=== PATIENT | male | born 1990 | race American Indian/Alaskan Native ===

== ENCOUNTER 2019-01-30 22:20 | Emergency (ER) | payer SELFPAY ==
--- NOTE | 2019-01-30 22:28 | Event Note ---
ED Screening Note ED Screening Note: pt presents for left hand pain and left forearm pain states he got his hand caught in a bun compressor never injured before PMHx HTN, CVA does not take his medicine no allergies to meds This initial assessment/diagnostic orders/clinical plan/treatment(s) is/are subject to change based on patients health status, clinical progression and re- assessment by fellow clinical providers in the ED. Further treatment and workup at subsequent clinical providers discretion. Patient/guardian urged not to elope from the ED as their condition may be serious if not clinically assessed and managed. Initial orders include: XR of the left hand and forearm
[2019-01-30] MEDS ORDERED: IBUPROFEN 800 MG TAB PO ONE (23:02)
--- NOTE | 2019-01-30 23:13 | XRay Report ---
LEFT FOREARM 2 VIEWS INDICATION / CLINICAL INFORMATION: Injury at work with left forearm pain. COMPARISON: None available. FINDINGS: BONES / JOINT(S): No acute fracture or subluxation. No significant arthritis. SOFT TISSUES: No significant abnormality. ADDITIONAL FINDINGS: None. IMPRESSION: No acute abnormality. Signer Name: Henok Lau MD Signed: 01/30/2019 11:09 PM Workstation Name: [id number]
--- NOTE | 2019-01-30 23:15 | XRay Report ---
LEFT HAND 3 VIEWS INDICATION / CLINICAL INFORMATION: Injury at work with left hand pain. COMPARISON: None available. FINDINGS: BONES / JOINT(S): No acute fracture or subluxation. There is a moderate sized well-defined cyst in th e distal navicular which is likely developmental. SOFT TISSUES: No significant abnormality. ADDITIONAL FINDINGS: None. IMPRESSION: No acute abnormality. Signer Name: Henok Lau MD Signed: 01/30/2019 11:10 PM Workstation Name: [id number]
[2019-01-30] MEDS ORDERED: traMADol 50 MG TAB PO ONE (23:20)
--- NOTE | 2019-01-30 23:40 | Emergency Department Report ---
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 Patient states that the roller Haile to the mid forearm. Patient states he was in such pain after leaving the restaurant he went home and had a few shots of alcohol. Patient states he can move his fingers but 70 extreme pain whenever he tries to move his wrist or supinate or pronate. Pain is a 10 out of 10. MD Complaint: extremity pain - Related Data Previous Rx's Medication Instructions Recorded Last Taken Type HYDROcodone/APAP 5-325 [[place] 1 each PO Q6HR PRN #10 tablet 01/30/19 Unknown Rx 5/325] Ibuprofen [Motrin 800 MG tab] 800 mg PO Q8HR PRN #10 tablet 01/30/19 Unknown Rx methOCARBAMOL [Robaxin TAB] 500 mg PO Q6H PRN #14 tablet 01/30/19 Unknown Rx Allergies Allergy/AdvReac Type Severity Reaction Status Date / Time No Known Allergies Allergy Verified 01/30/19 22:23 ED Review of Systems ROS: Stated complaint: LT HAND/ARM PAIN Other details as noted in HPI Comment: All other systems reviewed and negative ED Past Medical Hx - Past Medical History Hx Hypertension: Yes Hx CVA: Yes Additional medical history: elevated cholesterol - Social History Smoking Status: Current Every Day Smoker Substance Use Type: Alcohol, Marijuana - Medications Home Medications: Home Medications Medication Instructions Recorded Confirmed Last Taken Type HYDROcodone/APAP 5-325 [[place] 1 each PO Q6HR PRN #10 tablet 01/30/19 Unknown Rx 5/325] Ibuprofen [Motrin 800 MG tab] 800 mg PO Q8HR PRN #10 tablet 01/30/19 Unknown Rx methOCARBAMOL [Robaxin TAB] 500 mg PO Q6H PRN #14 tablet 01/30/19 Unknown Rx ED Physical Exam - General Limitations: No Limitations General appearance: alert, in distress - Head Head exam: Present: atraumatic, normocephalic - Eye Eye exam: Present: normal appearance - ENT ENT exam: Present: mucous membranes moist - Neck Neck exam: Present: normal inspection - GI/Abdominal GI/Abdominal exam: Absent: distended - Expanded Upper Extremity Exam Left Shoulder Exam: Present: normal inspection, full ROM Upper Arm exam: Present: normal inspection, full ROM Elbow exam: Present: normal inspection, full ROM Forearm Wrist exam: Present: tenderness (to the dorsal forearm), swelling Hand Wrist exam: Present: tenderness, swelling, other (patient is holding his hands and flexion. Patient has full range of motion to his fingers) Vascular: Present: normal capillary refill. Absent: vascular compromise ED Course Vital Signs 01/30/19 22:27 Temperature 98.7 F Pulse Rate 97 H Respiratory 18 Rate Blood Pressure 154/110 O2 Sat by Pulse 100 Oximetry ED Medical Decision Making - Radiology Data X-rays of the left hand and left forearm show no bony abnormality - Medical Decision Making Patient likely with some injury to the musculature and ligaments of the left forearm. Patient can move his fingers and actually can flex to make a complete fist which makes complete extensor tendon injury less likely. Patient placed in a sugar tong splint be discharged home. Given follow-up with orthopedic surgery. Critical care attestation.: If time is entered above; I have spent that time in minutes in the direct care of this critically ill patient, excluding procedure time. ED Disposition Clinical Impression: Left forearm pain Disposition: DC-01 TO HOME OR SELFCARE Is pt being admited?: No Does the pt Need Aspirin: No Condition: Stable Instructions: Musculoskeletal Pain (ED) Referrals: AKSHAT VILLAFANA MD [Staff Physician] - 3-5 Days Time of Disposition: 23:41
[2019-01-31 03:02] VITALS: BP 151/100
== END 2019-01-31 00:05 | disposition home or self-care (01) ==
LOC: ED 22:20
DX: M79.632 Pain in left forearm (principal); I10 Essential (primary) hypertension; F17.200 Nicotine dependence, unspecified, uncomplicated; F12.10 Cannabis abuse, uncomplicated; Z86.73 Personal history of transient ischemic attack (TIA), and cerebral infarction without residual deficits

== ENCOUNTER 2019-02-20 17:48 | Emergency (ER) | payer SELFPAY ==
[2019-02-20 18:30] VITALS: BP 146/93
[2019-02-20 19:10] LABS: Eosinophils % (Auto) 0.3 % (0.0-4.3); Hematocrit 45.7 % (35.5-45.6); Hemoglobin 15.6 gm/dl (11.8-15.2); Lymphocytes # (Auto) 2.6 K/mm3 (1.2-5.4); Lymphocytes % (Auto) 35.9 % (13.4-35.0); Mean Corpuscular HGB Conc 34 % (32-34); Mean Corpuscular Volume 100 fl (84-94); Monocytes # (Auto) 0.8 K/mm3 (0.0-0.8); Monocytes % (Auto) 11.4 % (0.0-7.3); Platelet Count 144 K/mm3 (140-440); Red Blood Count 4.59 M/mm3 (3.65-5.03); Red Cell Distribution Width 13.6 % (13.2-15.2)
[2019-02-20 19:19] LABS: BUN/Creatinine Ratio 11; Blood Urea Nitrogen 8 mg/dL (9-20); Calcium 9.3 mg/dL (8.4-10.2); Hemolysis Index 13
--- NOTE | 2019-02-20 19:50 | XRay Report ---
CHEST 1 VIEW 02/20/2019 6:38 PM INDICATION / CLINICAL INFORMATION: Shortness of breath. COMPARISON: None available. FINDINGS: SUPPORT DEVICES: None. HEART / MEDIASTINUM: No significant abnormality. LUNGS / PLEURA: No significant pulmonary or pleural abnormality. No pneumothorax. ADDITIONAL FINDINGS: No significant additional findings. IMPRESSION: 1. No acute findings. Signer Name: Steven Moeller MD Signed: 02/20/2019 7:46 PM Workstation Name: [id number]
--- NOTE | 2019-02-20 20:38 | Emergency Department Report ---
ED Chest Pain HPI - General Chief Complaint: Chest Pain Stated Complaint: KODY Time Seen by Provider: 02/20/19 18:10 Source: EMS Mode of arrival: Stretcher Limitations: No Limitations - History of Present Illness Initial Comments: 28-year-old male, history of asthma, presents to ED via EMS for chest pain or shortness of breath. Patient reports anterior chest pain, worse with palpation. Reports wheezing as well. Reports onset of symptoms while walking home from the grocery store. EMS was called, albuterol nebs were given, patient transported to ED. Patient states his symptoms have improved. MD Complaint: chest pain -: This evening Onset: during exertion Pain Location: left chest, right chest Pain Radiation: none Severity: mild Quality: sharp Consistency: now resolved Improves With: medication-other Worsens With: exertion re: dyspnea. denies: nausea, vomting, diaphoresis Other Symptoms: denies: cough, fever, leg swelling - Related Data Previous Rx's Medication Instructions Recorded Last Taken Type HYDROcodone/APAP 5-325 [[place] 1 each PO Q6HR PRN #10 tablet 01/30/19 Unknown Rx 5/325] Ibuprofen [Motrin 800 MG tab] 800 mg PO Q8HR PRN #10 tablet 01/30/19 Unknown Rx methOCARBAMOL [Robaxin TAB] 500 mg PO Q6H PRN #14 tablet 01/30/19 Unknown Rx Allergies Allergy/AdvReac Type Severity Reaction Status Date / Time No Known Allergies Allergy Verified 01/30/19 22:23 Heart Score - HEART Score History: Slightly suspicious EKG: Normal Age: < 45 Risk factors: 1-2 risk factors Troponin: < normal limit HEART Score: 1 ED Review of Systems ROS: Stated complaint: KODY Other details as noted in HPI Comment: All other systems reviewed and negative Constitutional: denies: chills, fever Respiratory: shortness of breath, wheezing Cardiovascular: chest pain Musculoskeletal: other (denies leg pain or swelling) ED Past Medical Hx - Past Medical History Previous Medical History?: Yes Hx Hypertension: Yes Hx CVA: Yes Additional medical history: elevated cholesterol - Surgical History Past Surgical History?: No - Social History Smoking Status: Unknown if ever smoked Substance Use Type: None - Medications Home Medications: Home Medications Medication Instructions Recorded Confirmed Last Taken Type HYDROcodone/APAP 5-325 [[place] 1 each PO Q6HR PRN #10 tablet 01/30/19 Unknown Rx 5/325] Ibuprofen [Motrin 800 MG tab] 800 mg PO Q8HR PRN #10 tablet 01/30/19 Unknown Rx methOCARBAMOL [Robaxin TAB] 500 mg PO Q6H PRN #14 tablet 01/30/19 Unknown Rx ED Physical Exam - General Limitations: No Limitations General appearance: alert, in no apparent distress - Head Head exam: Present: atraumatic, normocephalic - Eye Eye exam: Present: normal appearance, EOMI - ENT ENT exam: Present: mucous membranes moist - Neck Neck exam: Present: normal inspection - Respiratory Respiratory exam: Present: normal lung sounds bilaterally. Absent: respiratory distress, wheezes - Cardiovascular Cardiovascular Exam: Present: regular rate, normal rhythm - GI/Abdominal GI/Abdominal exam: Present: soft. Absent: distended, tenderness - Extremities Exam Extremities exam: Present: normal inspection. Absent: pedal edema, calf tenderness - Neurological Exam Neurological exam: Present: alert, oriented X3, CN II-XII intact. Absent: motor sensory deficit - Psychiatric Psychiatric exam: Present: normal affect, normal mood - Skin Skin exam: Present: warm, dry, intact, normal color ED Course Vital Signs 02/20/19 02/20/19 17:53 18:28 Temperature 97.8 F Pulse Rate 93 H Respiratory 16 Rate Blood Pressure 146/93 [Left] O2 Sat by Pulse 100 Oximetry ED Medical Decision Making - Lab Data Result diagrams: 02/20/19 18:48 02/20/19 18:48 - EKG Data -: EKG Interpreted by Nc EKG shows normal: sinus rhythm, axis, intervals, QRS complexes, ST-T waves Rate: normal - EKG Data Interpretation: no acute changes - Radiology Data Radiology results: report reviewed, image reviewed - Medical Decision Making Patient eloped. - Differential Diagnosis asthma, ACS, pneumothorax Critical care attestation.: If time is entered above; I have spent that time in minutes in the direct care of this critically ill patient, excluding procedure time. ED Disposition Clinical Impression: Chest pain Disposition: ELOPED Is pt being admited?: No Condition: Stable Instructions: Chest Pain (ED) Referrals: PRIMARY CARE,MD [Primary Care Provider] - 3-5 Days
== END 2019-02-20 20:18 | disposition left against medical advice (07) ==
LOC: ED 17:48
DX: R07.89 Other chest pain (principal); I10 Essential (primary) hypertension; E78.5 Hyperlipidemia, unspecified; Z86.73 Personal history of transient ischemic attack (TIA), and cerebral infarction without residual deficits; Z79.899 Other long term (current) drug therapy
CPT/HCPCS: 36415; 71045; 80048; 84484; 85025; 93005; 93010

== ENCOUNTER 2020-09-16 23:57 | Emergency (ER) | payer SELFPAY ==
[2020-09-17 00:41] VITALS: BP 175/120
--- NOTE | 2020-09-17 02:37 | XRay Report ---
EXAMINATION: Left shoulder radiograph, 2 views, 09/17/2020 CLINICAL INFORMATION: Trauma. Seizure. COMPARISON: None. FINDINGS: There is no evidence of acute fracture or dislocation of the left shoulder. No significant bony degenerative changes are noted Signer Name: Graciela Wang MD Signed: 09/17/2020 2:33 AM Workstation Name: [id number]
--- NOTE | 2020-09-17 05:15 | Cat Scan Report ---
Examination: CT of the head without contrast Clinical information: Seizure Comparison: None Technical: Multiple axial CT images of the head were obtained without intravenous contrast. Sagittal and coronal reformats were obtained. All CTs at this facility utilize dose reduction techniques inc luding automated exposure control, iterative reconstruction and weight based dosing when appropriate to reduce patient radiation dose to as low as reasonable achievable. Findings: INTRACRANIAL CONTENTS: There is no CT evidence of acute intracranial hemorrhage or large territorial infarct. The ventricular system is normal in size. There is no evidence of mass effect or midline cliff ft. SKULL: No acute bony abnormality is visualized. ORBITS: The bilateral orbits and globes appear normal PARANASAL SINUSES / MASTOID AIR CELLS: Paranasal sinuses and mastoid air cells appear clear. Impression: 1. No CT evidence of acute intracranial process. Signer Name: Graciela Wang MD Signed: 09/17/2020 5:10 AM Workstation Name: [id number]
[2020-09-17 05:20] LABS: Basophils % (Auto) 0.3 % (0.0-1.8); Eosinophils # (Auto) 0.1 K/mm3 (0.0-0.4); Eosinophils % (Auto) 0.6 % (0.0-4.3); Hematocrit 39.2 % (35.5-45.6); Hemoglobin 13.7 gm/dl (11.8-15.2); Lymphocytes # (Auto) 2.6 K/mm3 (1.2-5.4); Lymphocytes % (Auto) 33.2 % (13.4-35.0); Mean Corpuscular HGB Conc 35 % (32-34); Mean Corpuscular Volume 105 fl (84-94); Monocytes # (Auto) 0.6 K/mm3 (0.0-0.8); Platelet Count 122 K/mm3 (140-440); Red Blood Count 3.74 M/mm3 (3.65-5.03); Red Cell Distribution Width 14.1 % (13.2-15.2)
[2020-09-17 05:33] LABS: Alanine Aminotransferase 52 units/L (7-56); Albumin 4.4 g/dL (3.9-5); Blood Urea Nitrogen 8 mg/dL (9-20); Calcium 8.7 mg/dL (8.4-10.2); Hemolysis Index 6
[2020-09-17 05:37] LABS: Amphetamine Screen,Urine Negative; Benzodiazepines Screen,Urine Negative; Cocaine Screen,Urine Negative; Methadone Screen,Urine Negative; Opiate Screen,Urine Negative
[2020-09-17 05:37] LABS: BUN/Creatinine Ratio 13
[2020-09-17 05:56] LABS: Cannabinoid Screen,Urine Positive
[2020-09-17] MEDS ORDERED: IBUPROFEN 600 MG TAB PO ONE (06:50)
[2020-09-17] MEDS ORDERED: HYDROcodone/ACETAMINOPHEN 5-325 MG TAB PO ONE (06:50)
--- NOTE | 2020-09-17 06:54 | Emergency Department Report ---
ED General Adult HPI - General Chief complaint: Shoulder Injury Stated complaint: SEIZURES Time Seen by Provider: 09/17/20 04:37 Source: patient, EMS Mode of arrival: Stretcher Limitations: No Limitations - History of Present Illness Initial comments: 30-year-old -[place] male [facility] emerge department complaining of having a seizure and falling and injuring his left shoulder about 36 hours ago. States that shoulder popped out of place and spontaneously had reduced but pain still lingered. He reports dull throbbing pain to the to the shoulder which is improving as time progresses. He does have a continue to have dull throbbing headaches and various seizure activity over the last 1 month which he states that the seizures occur at random and are short-lived and he is more like passing out than seizure activity. Alcohol seems to worsen the symptoms. States he has been seen at another hospital for his shoulder and passing out but reports no CT scan was obtained. He is not yet follow-up with a primary care provider and symptoms continue to progress. Reports no visual changes, no fevers chills or sweats. No nausea vomiting Radiation: non-radiation Quality: aching, dull Consistency: constant Improves with: none Worsens with: none Associated Symptoms: headaches, nausea/vomiting. denies: confusion, chest pain, cough, diaphoresis, seizure, syncope, weakness - Related Data Previous Rx's Medication Instructions Recorded Last Taken Type HYDROcodone/APAP 5-325 [[place] 1 each PO Q6HR PRN #10 tablet 01/30/19 Unknown Rx 5/325] Ibuprofen [Motrin 800 MG tab] 800 mg PO Q8HR PRN #10 tablet 01/30/19 Unknown Rx methOCARBAMOL [Robaxin TAB] 500 mg PO Q6H PRN #14 tablet 01/30/19 Unknown Rx levETIRAcetam [Keppra TAB] 500 mg PO BID #60 tablet 09/17/20 Unknown Rx Allergies Allergy/AdvReac Type Severity Reaction Status Date / Time No Known Allergies Allergy Verified 01/30/19 22:23 ED Review of Systems ROS: Stated complaint: SEIZURES Other details as noted in HPI Comment: All other systems reviewed and negative ED Past Medical Hx - Past Medical History Hx Hypertension: Yes Hx CVA: Yes Additional medical history: elevated cholesterol - Social History Smoking Status: Current Every Day Smoker - Medications Home Medications: Home Medications Medication Instructions Recorded Confirmed Last Taken Type HYDROcodone/APAP 5-325 [[place] 1 each PO Q6HR PRN #10 tablet 01/30/19 Unknown Rx 5/325] Ibuprofen [Motrin 800 MG tab] 800 mg PO Q8HR PRN #10 tablet 01/30/19 Unknown Rx methOCARBAMOL [Robaxin TAB] 500 mg PO Q6H PRN #14 tablet 01/30/19 Unknown Rx levETIRAcetam [Keppra TAB] 500 mg PO BID #60 tablet 09/17/20 Unknown Rx ED Physical Exam - General Limitations: No Limitations General appearance: alert, in no apparent distress, other (Faint smell of EtOH on breath) - Head Head exam: Present: atraumatic, normocephalic - Eye Eye exam: Present: normal appearance, PERRL, EOMI. Absent: nystagmus - ENT ENT exam: Present: normal exam, normal orophraynx, mucous membranes moist, TM's normal bilaterally, normal external ear exam - Neck Neck exam: Present: normal inspection, full ROM - Respiratory Respiratory exam: Present: normal lung sounds bilaterally. Absent: respiratory distress, wheezes, rales, rhonchi, chest wall tenderness, accessory muscle use, decreased breath sounds - Cardiovascular Cardiovascular Exam: Present: regular rate, normal rhythm. Absent: systolic m urmur, diastolic murmur, rubs, gallop - GI/Abdominal GI/Abdominal exam: Present: soft, normal bowel sounds. Absent: tenderness, guarding, rebound - Rectal Rectal exam: Present: deferred - Extremities Exam Extremities exam: Present: normal inspection, tenderness (Left shoulder full range of motion noted. Some tenderness with Virgen test. No sulcus sign. No obvious deformities), normal capillary refill. Absent: calf tenderness - Back Exam Back exam: Present: normal inspection. Absent: CVA tenderness (R), CVA tenderness (L) - Neurological Exam Neurological exam: Present: alert, oriented X3, CN II-XII intact, normal gait - Expanded Neurological Exam Expanded Patient oriented to: Present: person, place, time Speech: Present: fluid speech, expressive aphasia, anomia Cranial nerves: EOM's Intact: Normal, Gag Reflex: Normal Cerebellar function: Finger to Nose: Normal, Heel to Blakely: Normal, Romberg: Normal Best Eye Response (Paula): (4) open spontaneously Best Motor Response (Paula): (6) obeys commands Best Verbal Response (Paula): (5) oriented Paula Total: 15 - Psychiatric Psychiatric exam: Present: normal affect, normal mood - Skin Skin exam: Present: warm, dry, intact, normal color. Absent: rash ED Course Vital Signs 09/17/20 00:40 Temperature 97.9 F Pulse Rate 107 H Respiratory 18 Rate Blood Pressure 175/120 O2 Sat by Pulse 98 Oximetry ED Medical Decision Making - Lab Data Result diagrams: 09/17/20 04:48 09/17/20 04:48 - Radiology Data Radiology results: report reviewed [facility] [address] [place] [address] Cat Scan Report Signed Patient: RAMESH HWANG MR#: [id number] 12 : 1990 Acct:[id number] Age/Sex: 30 / M ADM Date: 09/16/20 Loc: ED Attending Dr: Ordering Physician: LAST MARRERO Date of Service: 09/17/20 Procedure(s): CT head/brain wo con Accession Number(s): [id number] cc: LAST MARRERO Examination: CT of the head without contrast Clinical information: Seizure Comparison: None Technical: Multiple axial CT images of the head were obtained without intravenous contrast. Sagittal and coronal reformats were obtained. All CTs at this facility utilize dose reduction techniques including automated exposure control, iterative reconstruction and weight based dosing when appropriate to reduce patient radiation dose to as low as reasonable achievable. Findings: INTRACRANIAL CONTENTS: There is no CT evidence of acute intracranial hemorrhage or large territorial infarct. The ventricular system is normal in size. There is no evidence of mass effect or midline shift. SKULL: No acute bony abnormality is visualized. ORBITS: The bilateral orbits and globes appear normal PARANASAL SINUSES / MASTOID AIR CELLS: Paranasal sinuses and mastoid air cells appear clear. Impression: 1. No CT evidence of acute intracranial process. Signer Name: Graciela Wang MD Signed: 09/17/2020 5:10 AM Workstation Name: [id number] Transcribed By: SANJU Dictated By: Graciela Wang MD Electronically Authenticated By: Graciela Wang MD Signed Date/Time: 09/17/20 0510 DD/ [id number] TD/TT: Print Cancel - Medical Decision Making 30-year-old male presents emerged department with symptoms consistent with acute seizure which may have been due to his alcohol consumption. He does report recurrent/recent seizure episodes. Patient had a normal return to her baseline normal mental state normal physical function per my examination. Normal to compromised vision history and had no preceding fever. Does have a history of alcohol abuse but no suspicion for any other toxic ingestion. I considered but think less likely secondary etiologies of epileptic seizures to include drug/toxin etiologies, metabolic disturbances, acute [employer] infections, intracranial hemorrhage/tumor/CVA. Presentation not consistent with nonepileptic's type seizure to include syncope, neurologic etiologies, impact seizure related to trauma. unlikely stroke. My seizure MDM Critical care attestation.: If time is entered above; I have spent that time in minutes in the direct care of this critically ill patient, excluding procedure time. ED Disposition Clinical Impression: Seizures, Shoulder pain Disposition: DC-01 TO HOME OR SELFCARE Is pt being admited?: No Does the pt Need Aspirin: No Condition: Stable Instructions: Shoulder Pain, Seizure, Adult, How to Use Cold Therapy Prescriptions: levETIRAcetam [Keppra TAB] 500 mg PO BID #60 tablet Referrals: [facility] [Provider Group] - 3-5 Days MEDINA WHITEHEAD MD [Staff Physician] - 3-5 Days
== END 2020-09-17 06:56 | disposition home or self-care (01) ==
LOC: ED 23:57
DX: R56.9 Unspecified convulsions (principal); M25.512 Pain in left shoulder; I10 Essential (primary) hypertension; F17.200 Nicotine dependence, unspecified, uncomplicated; E78.00 Pure hypercholesterolemia, unspecified; Z86.73 Personal history of transient ischemic attack (TIA), and cerebral infarction without residual deficits; Z79.899 Other long term (current) drug therapy; W18.39XA Other fall on same level, initial encounter; Y93.89 Activity, other specified; Y92.89 Other specified places as the place of occurrence of the external cause; Y99.8 Other external cause status
CPT/HCPCS: 36415; 70450; 80053; 80307; 85025; 99285

== ENCOUNTER 2021-02-13 21:26 | Emergency (ER) | payer SELFPAY ==
[2021-02-13] MEDS ORDERED: ONDANSETRON 4 MG/2 ML INJ IV ONE (21:57)
[2021-02-13] MEDS ORDERED: fentaNYL 100 MCG/2 ML INJ IV ONE (21:57)
[2021-02-13] MEDS ORDERED: SODIUM CHLORIDE 0.9% 1000 ML 1,000 ML IV ONE (21:57)
--- NOTE | 2021-02-13 22:02 | Emergency Department Report ---
ED Upper Extremity Inj HPI - General Chief Complaint: Shoulder Injury Stated Complaint: RIGHT SHOULDER DISLOCATED Time Seen by Provider: 02/13/21 21:53 Source: patient, EMS Mode of arrival: Stretcher Limitations: No Limitations - History of Present Illness Initial Comments: Patient is 30 years old male with history of recurrent shoulder dislocation. Temo reina presented to the ER complaining of right shoulder dislocation. Patient stated that he was banging on his door this afternoon when this happened. Patient denied any other injuries. MD Complaint: Injury to:: right, shoulder -: Sudden, This afternoon Other Extremity Injury: Shoulder: Right Other Injuries: none Improves With: immobilization Worsens With: movement of extremity - Related Data Previous Rx's Medication Instructions Recorded Last Taken Type HYDROcodone/APAP 5-325 [[place] 1 each PO Q6HR PRN #10 tablet 01/30/19 Unknown Rx 5/325] Ibuprofen [Motrin 800 MG tab] 800 mg PO Q8HR PRN #10 tablet 01/30/19 Unknown Rx methOCARBAMOL [Robaxin TAB] 500 mg PO Q6H PRN #14 tablet 01/30/19 Unknown Rx levETIRAcetam [Keppra TAB] 500 mg PO BID #60 tablet 09/17/20 Unknown Rx Naproxen [Naprosyn] 500 mg PO BID #14 tablet 02/14/21 Unknown Rx Allergies Allergy/AdvReac Type Severity Reaction Status Date / Time No Known Allergies Allergy Verified 01/30/19 22:23 ED Review of Systems ROS: Stated complaint: RIGHT SHOULDER DISLOCATED Other details as noted in HPI Comment: All other systems reviewed and negative Constitutional: denies: chills Respiratory: denies: cough, shortness of breath, SOB with exertion Gastrointestinal: denies: abdominal pain Musculoskeletal: arthralgia ED Past Medical Hx - Past Medical History Hx Hypertension: Yes Hx CVA: Yes Additional medical history: elevated cholesterol - Social History Smoking Status: Current Every Day Smoker Substance Use Type: Alcohol - Medications Home Medications: Home Medications Medication Instructions Recorded Confirmed Last Taken Type HYDROcodone/APAP 5-325 [[place] 1 each PO Q6HR PRN #10 tablet 01/30/19 Unknown Rx 5/325] Ibuprofen [Motrin 800 MG tab] 800 mg PO Q8HR PRN #10 tablet 01/30/19 Unknown Rx methOCARBAMOL [Robaxin TAB] 500 mg PO Q6H PRN #14 tablet 01/30/19 Unknown Rx levETIRAcetam [Keppra TAB] 500 mg PO BID #60 tablet 09/17/20 Unknown Rx Naproxen [Naprosyn] 500 mg PO BID #14 tablet 02/14/21 Unknown Rx ED Physical Exam - General Limitations: No Limitations General appearance: alert, in no apparent distress - Head Head exam: Present: atraumatic, normocephalic, normal inspection - Eye Eye exam: Present: normal appearance - ENT ENT exam: Present: normal exam, normal orophraynx, mucous membranes moist - Neck Neck exam: Present: normal inspection, full ROM. Absent: tenderness, meningismus - Respiratory Respiratory exam: Present: normal lung sounds bilaterally - Cardiovascular Cardiovascular Exam: Present: regular rate, normal rhythm, normal heart sounds - GI/Abdominal GI/Abdominal exam: Present: soft. Absent: distended, tenderness, guarding, rebound - Expanded Upper Extremity Exam Right Shoulder Exam: Present: tenderness, dislocation. Absent: swelling, abrasion, laceration, ecchymosis Upper Arm exam: Present: normal inspection, full ROM. Absent: tenderness, swelling Elbow exam: Present: normal inspection, full ROM. Absent: tenderness, swelling Forearm Wrist exam: Present: normal inspection, full ROM. Absent: tenderness, swelling, abrasion Neuro motor exam: Present: wrist extension intact, thumb opposition intact, thumb IP flexion intact, thumb adduction intact, fingers 2-5 abduction intact Neurosensory exam: Present: 2-point discrimination, radial nerve intact, ulnar nerve intact, median nerve intact Vascular: Present: normal capillary refill - Back Exam Back exam: Present: normal inspection, full ROM. Absent: CVA tenderness (R), CVA tenderness (L) - Neurological Exam Neurological exam: Present: alert, oriented X3, CN II-XII intact, normal gait, reflexes normal - Psychiatric Psychiatric exam: Present: normal mood - Skin Skin exam: Present: warm, intact, normal color ED Course Vital Signs 02/13/21 02/13/21 21:32 21:59 Pulse Rate 62 Blood Pressure 143/99 O2 Sat by Pulse 98 94 Oximetry - Reevaluation(s) Reevaluation #1: 02/14/21 01:09 Patient now is alert, oriented x3 no acute distress. Patient will be discharged home in stable condition. - Moderate Sedation Indications: fracture/dislocation redu Mallampati Airway Score: 2 Preparation: italian teacher applied, pulse oximeter, capnometry used, supplemental O2 applied, reversal agents at bedside, suction/airway equipment at bedside, IV secured Fentanyl: IV IV Etomidate Dose (mgs): 8.8 Complications: none Patient Tolerated Procedure: well, no complications - Orthopedic Joint Reduction Joint #1 Consent Obtained: written consent Time Out Performed: Yes Side: right Joint Reduction Location: shoulder Analgesia: moderate sedation Shoulder Technique Used (if applicable): traction/counter-traction Technique Used: traction/counter-traction Post-Reduction Neuro Exam: intact Post-Reduction Vascular Exam: intact Post Reduction X-Ray Obtained: Yes Post Reduction X-Ray Results: reduced Splint Applied: Yes Patient Tolerated Procedure: well, no complications ED Medical Decision Making - Radiology Data Radiology results: report reviewed - Medical Decision Making Patient is 30 years old male with history of recurrent shoulder dislocation. Patient presented to the ER complaining of right shoulder dislocation. Patient stated that he was banging on his door this afternoon when this happened. Patient denied any other injuries. Right shoulder x-ray showed dislocation. Using a moderate sedation. Shoulder dislocation reduced using traction and countertraction. No complication. Post x-ray showed satisfactory reduction. Arm immobilized. Patient advised to follow-up with his primary doctor in the next 2 to 3 days and to return to the ER if he develop any new symptoms. Critical care attestation.: If time is entered above; I have spent that time in minutes in the direct care of this critically ill patient, excluding procedure time. ED Disposition Clinical Impression: Recurrent dislocation, right shoulder Disposition: 01 HOME / SELF CARE / HOMELESS Is pt being admited?: No Condition: Stable Instructions: Recurrent Shoulder Laxity and Instability, Moderate Conscious Sedation, Adult Prescriptions: Naproxen [Naprosyn] 500 mg PO BID #14 tablet Referrals: AKSHAT VILLAFANA MD [Staff Physician] - 3-5 Days
[2021-02-13] MEDS ORDERED: ETOMIDATE 20 MG/10 ML INJ IV ONE (23:04)
--- NOTE | 2021-02-13 23:08 | XRay Report ---
RIGHT SHOULDER 1 VIEW(S) INDICATION / CLINICAL INFORMATION: shoulder injury. Right shoulder dislocation 3:00 PM COMPARISON: None available. FINDINGS: BONES / JOINT(S): Anterior dislocation of the humeral head relative to the glenoid. No definite fract ure. No significant arthritis. SOFT TISSUES: No significant abnormality. ADDITIONAL FINDINGS: None. IMPRESSION: 1. Anterior shoulder dislocation. Signer Name: Keila Lomax MD Signed: 02/13/2021 11:03 PM Workstation Name: [id number]
[2021-02-13] MEDS ORDERED: fentaNYL 250 MCG/5 ML INJ IV ONE (23:31)
--- NOTE | 2021-02-14 00:38 | XRay Report ---
RIGHT SHOULDER 1 VIEW(S) 02/13/21 11:48 PM INDICATION / CLINICAL INFORMATION: Post reduction. COMPARISON: 02/13/21 10:11 PM FINDINGS: BONES / JOINT(S): Successful interval reduction of previous anterior shoulder dislocation. No definit e fracture. No significant arthritis. SOFT TISSUES: No significant abnormality. ADDITIONAL FINDINGS: None. Signer Name: Keila Lomax MD Signed: 02/14/2021 12:34 AM Workstation Name: [id number]
[2021-02-14 01:17] VITALS: BP 166/117
[2021-02-14] MEDS ORDERED: fentaNYL 100 MCG/2 ML INJ ONE (05:41)
== END 2021-02-14 01:30 | disposition home or self-care (01) ==
LOC: ED 21:26
DX: S43.004A Unspecified dislocation of right shoulder joint, initial encounter (principal); X58.XXXA Exposure to other specified factors, initial encounter; Y93.89 Activity, other specified; Y92.89 Other specified places as the place of occurrence of the external cause; Y99.8 Other external cause status
CPT/HCPCS: 23650; 73020; 96361; 96374; 96375; 96376; 99284; J2405; J3010; J7030

== ENCOUNTER 2021-06-13 15:46 | Inpatient (IN) | payer SELFPAY ==
[2021-06-13] MEDS ORDERED: CLINDAMYCIN 600 MG/50 mL 600 MG/50 ML BAG IV ONE (17:22)
[2021-06-13] MEDS ORDERED: KETOROLAC 30 MG/1 ML INJ IV ONE (17:23)
[2021-06-13] MEDS ORDERED: ONDANSETRON 4 MG/2 ML INJ IV ONE (17:23)
--- NOTE | 2021-06-13 17:32 | Emergency Department Report ---
ED Lower Extremity HPI - General Chief Complaint: Extremity Injury, Lower Stated Complaint: RIGHT TOES APARICIO BITE Time Seen by Provider: 06/13/21 16:45 Source: patient, EMS Mode of arrival: Stretcher Limitations: Physical Limitation - History of Present Illness Initial Comments: 30-year-old homeless male smoker with a past medical history of hypertension and seizures noncompliant with medication presents to the hospital complaining of worsening pain to right foot. 3 months ago patient was diagnosed with frostbite at [facility]. He has been seen at [facility] a total of 3 times and was told he also has gangrene. Patient has noted black discoloration to toes x1 month. During his visits to [facility] he was treated with ibuprofen, N [place], antibiotics, and tetanus. Patient states that his swelling improved after antibiotics but reoccurred 2 days ago. He has not followed up as an outpatient since his diagnosis. Pain is 10/10 intensity, worse with palpation and movement. States that pain is not controlled with [place] or ibuprofen - Related Data Previous Rx's Medication Instructions Recorded Last Taken Type levETIRAcetam [Keppra TAB] 500 mg PO BID #60 tablet 09/17/20 Unknown Rx Allergies Allergy/AdvReac Type Severity Reaction Status Date / Time No Known Allergies Allergy Verified 06/13/21 15:54 ED Review of Systems ROS: Stated complaint: RIGHT TOES APARICIO BITE Other details as noted in HPI Comment: All other systems reviewed and negative ED Past Medical Hx - Past Medical History Hx Hypertension: Yes Hx CVA: Yes Additional medical history: elevated cholesterol - Social History Smoking Status: Current Every Day Smoker Substance Use Type: Alcohol - Medications Home Medications: Home Medications Medication Instructions Recorded Confirmed Last Taken Type levETIRAcetam [Keppra TAB] 500 mg PO BID #60 tablet 09/17/20 Unknown Rx ED Physical Exam - General Limitations: Physical Limitation - Other Other exam information: General: No acute distress Head: Atraumatic Eyes: normal appearance ENT: Moist mucous membranes Neck: Normal appearance, no midline tenderness Chest: Clear to auscultation bilaterally CV: Regular rate and rhythm Abdomen: Soft, normal bowel sounds, nontender, nondistended, no rebound or guarding Back: Normal inspection Extremity: Black discoloration to distal right first, second, third toes with generalized foot swelling and warmth and tenderness to light palpation. 2+ DP pulse. Patient is able to move his toes. Neuro: Alert O x 3, no facial asymmetry, speech clear, no gross motor sensory deficit Psych: Appropriate behavior Skin: No rash ED Course Vital Signs 06/13/21 06/13/21 06/13/21 15:52 17:24 17:31 Temperature Pulse Rate 98 H 84 90 Respiratory 14 18 19 Rate Blood Pressure 185/121 Blood Pressure 184/123 [Right] O2 Sat by Pulse 95 97 Oximetry 06/13/21 06/13/21 06/13/21 17:45 17:46 18:18 Temperature 98.4 F Pulse Rate 84 87 Respiratory 12 15 25 H Rate Blood Pressure 175/135 Blood Pressure 175/135 [Right] O2 Sat by Pulse 97 96 Oximetry 06/13/21 18:20 Temperature 98.4 F Pulse Rate 89 Respiratory 21 Rate Blood Pressure 164/119 Blood Pressure [Right] O2 Sat by Pulse Oximetry - Consultations Consultation #1: 06/13/21 19:25 case d/w Dr Magaña surgeon, agrees to consult for possible surgical intervention and amputation. Patient states he is willing to receive an amputation if necessary for treatment and pain relief 06/13/21 21:36 Case d/w Dr perdomo for admission ED Lower Extremity MDM - Lab Data Result diagrams: 06/13/21 17:54 06/13/21 17:54 Lab Results 06/13/21 06/13/21 Range/Units 17:54 17:54 WBC 9.3 (4.5-11.0) K/mm3 RBC 4.33 (3.65-5.03) M/mm3 Hgb 14.8 (11.8-15.2) gm/dl Hct 42.6 (35.5-45.6) % MCV 98 H (84-94) fl MCH 34 H (28-32) pg MCHC 35 H (32-34) % RDW 14.7 (13.2-15.2) % Plt Count 248 (140-440) K/mm3 Lymph % (Auto) 36.0 H (13.4-35.0) % [place] % (Auto) 4.9 (0.0-7.3) % Eos % (Auto) 0.2 (0.0-4.3) % Baso % (Auto) 0.2 (0.0-1.8) % Lymph # (Auto) 3.4 (1.2-5.4) K/mm3 [place] # (Auto) 0.5 (0.0-0.8) K/mm3 Eos # (Auto) 0.0 (0.0-0.4) K/mm3 Baso # (Auto) 0.0 (0.0-0.1) K/mm3 Seg Neutrophils % 58.7 (40.0-70.0) % Seg Neutrophils # 5.5 (1.8-7.7) K/mm3 ESR 19 (0-20) mm/Hr Sodium 143 (137-145) mmol/L Potassium 3.9 (3.6-5.0) mmol/L Chloride 100.9 (98-107) mmol/L Carbon Dioxide 26 (22-30) mmol/L Anion Gap 20 mmol/L BUN 12 (9-20) mg/dL Creatinine 0.6 L (0.8-1.3) mg/dL Estimated GFR > 60 ml/min BUN/Creatinine Ratio 20 % Glucose 90 (75-100) mg/dL Calcium 9.2 (8.4-10.2) mg/dL - Radiology Data Radiology results: report reviewed RIGHT FOOT 3 VIEWS INDICATION / CLINICAL INFORMATION: Gangrene of right toes, right foot swelling. COMPARISON: None available. FINDINGS: BONES and JOINT(S): No acute fracture or subluxation. No significant arthritis. No suspicious cortical destruction is identified. SOFT TISSUES: Mild edema is seen dorsally along the foot. No distinct wound is identified. No soft tissue gas is seen. ADDITIONAL FINDINGS: None. IMPRESSION: Mild right foot edema without other significant abnormalities. - Medical Decision Making 30-year-old male presents to the hospital with persistent severe right foot pain secondary to frostbite injury with gangrene. Patient also has fairly new swelling to the foot with warmth. Patient does not have fever, leukocytosis, elevated ESR, or x-ray findings of gas or osseous injury. Patient does have intractable and severe pain requiring multiple doses of narcotics. Patient has a palpable DP pulse to the right foot. Case discussed with Dr. Magaña who is agreed to evaluate patient for definitive treatment and possible amputation. Patient is agreeable to amputation necessary. Clindamycin provided given evidence of swelling and warmth to the foot. Patient is noted to have chronic untreated hypertension without signs of endorgan damage or symptoms (defer to hospitalist to treat). Keppra initiated for prophylaxis sz treatment. hospitalist to admit Critical Care Time: No Critical care attestation.: If time is entered above; I have spent that time in minutes in the direct care of this critically ill patient, excluding procedure time. ED Disposition Clinical Impression: Gangrene of right foot, Frostbite of right foot, Chronic hypertension, Noncompliance with medication regimen, Smoker, Epilepsy, Cellulitis of right foot, Intractable pain Disposition: ADMITTED INPATIENT Is pt being admited?: Yes Condition: Stable Instructions: Hypertension (ED) Time of Disposition: 19:32 (Dr Predomo to admit)
[2021-06-13] MEDS: HYDROmorphone 1 MG/1 ML INJ IV ONE ×2 (18:05→18:18)
--- NOTE | 2021-06-13 18:14 | XRay Report ---
RIGHT FOOT 3 VIEWS INDICATION / CLINICAL INFORMATION: Gangrene of right toes, right foot swelling. COMPARISON: None available. FINDINGS: BONES and JOINT(S): No acute fracture or subluxation. No significant arthritis. No suspicious cortica l destruction is identified. SOFT TISSUES: Mild edema is seen dorsally along the foot. No distinct wound is identified. No soft ti ssue gas is seen. ADDITIONAL FINDINGS: None. IMPRESSION: Mild right foot edema without other significant abnormalities. Signer Name: Dionicio Elliott MD Signed: 06/13/2021 6:10 PM Workstation Name: [id number]
[2021-06-13 18:21] LABS: Basophils % (Auto) 0.2 % (0.0-1.8); Eosinophils % (Auto) 0.2 % (0.0-4.3); Hematocrit 42.6 % (35.5-45.6); Hemoglobin 14.8 gm/dl (11.8-15.2); Lymphocytes # (Auto) 3.4 K/mm3 (1.2-5.4); Mean Corpuscular HGB Conc 35 % (32-34); Mean Corpuscular Volume 98 fl (84-94); Monocytes # (Auto) 0.5 K/mm3 (0.0-0.8); Monocytes % (Auto) 4.9 % (0.0-7.3); Platelet Count 248 K/mm3 (140-440); Red Blood Count 4.33 M/mm3 (3.65-5.03); Red Cell Distribution Width 14.7 % (13.2-15.2)
[2021-06-13 18:54] LABS: Blood Urea Nitrogen 12 mg/dL (9-20); Calcium 9.2 mg/dL (8.4-10.2); Hemolysis Index 18
[2021-06-13 18:57] LABS: BUN/Creatinine Ratio 20
[2021-06-13 19:12] LABS: Erythrocyte Sedimentation Rate 19 mm/Hr (0-20)
[2021-06-13] MEDS ORDERED: HYDROmorphone 1 MG/1 ML INJ IV ONE (19:27)
[2021-06-13] MEDS ORDERED: ONDANSETRON 4 MG/2 ML INJ IV PRN (21:56)
[2021-06-13] MEDS ORDERED: MORPHINE 2 MG/1 ML INJ IV PRN (21:56)
[2021-06-13] MEDS ORDERED: ACETAMINOPHEN 325 MG TAB PO PRN (21:56)
[2021-06-13] MEDS ORDERED: ALBUTEROL 2.5 MG/3 ML NEBU IH PRN (21:56)
[2021-06-13] MEDS ORDERED: HYDROmorphone 1 MG/1 ML INJ IV PRN (21:56)
[2021-06-13] MEDS ORDERED: levETIRAcetam 500 MG TAB PO SCH (22:00)
[2021-06-13] MEDS ORDERED: FAMOTIDINE 20 MG/2 ML INJ IV SCH (22:00)
[2021-06-13] MEDS ORDERED: D5W/0.45% NACL 1,000 ML IV SCH (22:00)
[2021-06-13] MEDS ORDERED: HEPARIN 5,000 UNIT/1 ML VIAL SUB-Q SCH (22:00)
[2021-06-13] MEDS ORDERED: VANCOMYCIN/NS 1 GM/250 ML 1 GM/250 ML BAG IV SCH (22:00)
--- NOTE | 2021-06-13 22:03 | History and Physical Report ---
History of Present Illness Date of examination: 06/13/21 Date of admission: 06/13/21 Chief complaint: Gangrene of the right foot Frostbite History of present illness: 30-year-old homeless male with history of hypertension and seizures and smoker was brought to the hospital complaining of worsening pain to right foot. 3 months ago patient was diagnosed with frostbite at [facility]. He has been seen at [facility] a total of 3 times and was told he also has gangrene. Patient has noted black discoloration to toes x1 month. During his visits to [facility] he was treated with ibuprofen, [place], antibiotics, and tetanus. Patient states that his swelling improved after antibiotics but reoccurred 2 days ago. He has not followed up as an outpatient since his diagnosis. Pain is 10/10 intensity, worse with palpation and movement. States that pain is not controlled with [place] or ibuprofen In the emergency room patient is found to have gangrene of the right foot. case d/w Dr Magaña surgeon, agrees to consult for possible surgical intervention and amputation. Patient states he is willing to receive an amputation if necessary for treatment and pain relief Past History Past Medical History: hypertension, hyperlipidemia, seizures (Tobacco abuse), stroke, other Social history: smoking, alcohol abuse Family history: no significant family history Medications and Allergies Allergies Allergy/AdvReac Type Severity Reaction Status Date / Time No Known Allergies Allergy Verified 06/13/21 15:54 Home Medications Medication Instructions Recorded Confirmed Last Taken Type levETIRAcetam [Keppra TAB] 500 mg PO BID #60 tablet 09/17/20 Unknown Rx Active Meds: Active Medications Levetiracetam (Levetiracetam 500 Mg Tab) 500 mg PO BID SUNG Review of Systems Musculoskeletal: other (Gangrene of the right foot. Frostbite) Exam - Constitutional Vitals: Temp Pulse Resp BP Pulse Ox 98.4 F 89 21 164/119 96 06/13/21 18:20 06/13/21 18:20 06/13/21 18:20 06/13/21 18:20 06/13/21 17:46 General appearance: Present: no acute distress, well-nourished - EENT Eyes: Present: PERRL ENT: hearing intact, clear oral mucosa - Neck Neck: Present: supple, normal ROM - Respiratory Respiratory effort: normal Respiratory: bilateral: CTA - Cardiovascular Heart Sounds: Present: S1 & S2. Absent: rub, click - Extremities Extremities: pulses symmetrical Extremity abnormal: cyanosis, erythema, black (Gangrene of the right foot), other Peripheral Pulses: within normal limits - Abdominal General gastrointestinal: Present: soft, non-tender, non-distended, normal bowel sounds Male genitourinary: Present: normal - Integumentary Integumentary: Present: clear, warm, dry - Musculoskeletal Musculoskeletal: gait normal, strength equal bilaterally - Psychiatric Psychiatric: appropriate mood/affect, intact judgment & insight - Neurologic Neurologic: CNII-XII intact, moves all extremities Results - Labs CBC & Chem 7: 06/13/21 17:54 06/13/21 17:54 Labs: Laboratory Last Values WBC 9.3 K/mm3 (4.5-11.0) 06/13/21 17:54 RBC 4.33 M/mm3 (3.65-5.03) 06/13/21 17:54 Hgb 14.8 gm/dl (11.8-15.2) 06/13/21 17:54 Hct 42.6 % (35.5-45.6) 06/13/21 17:54 MCV 98 fl (84-94) H 06/13/21 17:54 MCH 34 pg (28-32) H 06/13/21 17:54 MCHC 35 % (32-34) H 06/13/21 17:54 RDW 14.7 % (13.2-15.2) 06/13/21 17:54 Plt Count 248 K/mm3 (140-440) 06/13/21 17:54 Lymph % (Auto) 36.0 % (13.4-35.0) H 06/13/21 17:54 [place] % (Auto) 4.9 % (0.0-7.3) 06/13/21 17:54 Eos % (Auto) 0.2 % (0.0-4.3) 06/13/21 17:54 Baso % (Auto) 0.2 % (0.0-1.8) 06/13/21 17:54 Lymph # (Auto) 3.4 K/mm3 (1.2-5.4) 06/13/21 17:54 [place] # (Auto) 0.5 K/mm3 (0.0-0.8) 06/13/21 17:54 Eos # (Auto) 0.0 K/mm3 (0.0-0.4) 06/13/21 17:54 Baso # (Auto) 0.0 K/mm3 (0.0-0.1) 06/13/21 17:54 Seg Neutrophils % 58.7 % (40.0-70.0) 06/13/21 17:54 Seg Neutrophils # 5.5 K/mm3 (1.8-7.7) 06/13/21 17:54 ESR 19 mm/Hr (0-20) 06/13/21 17:54 Sodium 143 mmol/L (137-145) 06/13/21 17:54 Potassium 3.9 mmol/L (3.6-5.0) 06/13/21 17:54 Chloride 100.9 mmol/L (98-107) 06/13/21 17:54 Carbon Dioxide 26 mmol/L (22-30) 06/13/21 17:54 Anion Gap 20 mmol/L 06/13/21 17:54 BUN 12 mg/dL (9-20) 06/13/21 17:54 Creatinine 0.6 mg/dL (0.8-1.3) L 06/13/21 17:54 Estimated GFR > 60 ml/min 06/13/21 17:54 BUN/Creatinine Ratio 20 % 06/13/21 17:54 Glucose 90 mg/dL (75-100) 06/13/21 17:54 Calcium 9.2 mg/dL (8.4-10.2) 06/13/21 17:54 Assessment and Plan VTE prophylaxis?: Chemical Plan of care discussed with patient/family: Yes - Patient Problems (1) Gangrene of right foot Current Visit: Yes Status: Acute Plan to address problem: Admit the patient to the medical floor. NPO. D5 half-normal saline at the rate of 100 cc/h. Vancomycin 1 g IV every 12 hours. Zosyn 4.5 g IV every 8 hours. Morphine 2 mg IV every 4 hours as needed. We consulted vascular surgery for evaluation and possible amputation (2) Cellulitis of right foot Current Visit: Yes Status: Acute Plan to address problem: Vancomycin 1 g IV every 12 hours. Zosyn 4.5 g IV every 8 hours. Morphine 2 mg IV every 4 hours as needed. We consulted vascular surgery for evaluation and possible amputation (3) Chronic hypertension Current Visit: Yes Status: Acute Plan to address problem: Hydralazine 10 mg IV every 6 hours as needed. We continue the home medication (4) Epilepsy Current Visit: Yes Status: Acute Plan to address problem: Stable. We will continue the home medication Keppra 500 mg p.o. twice daily (5) Frostbite of right foot Current Visit: Yes Status: Acute Plan to address problem: NPO. D5 half-normal saline at the rate of 100 cc/h. Vancomycin 1 g IV every 12 hours. Zosyn 4.5 g IV every 8 hours. Morphine 2 mg IV every 4 hours as needed. We consulted vascular surgery for evaluation and possible amputation (6) Smoker Current Visit: Yes Status: Acute Plan to address problem: We counseled regarding quitting smoking. We put the patient on nicotine patch if needed (7) DVT prophylaxis Current Visit: Yes Status: Acute Plan to address problem: Heparin 5000 units subcu every 12 hours for DVT prophylaxis. Pepcid 20 mg IV twice daily for GI prophylaxis. Patient is a full code
[2021-06-13] MEDS ORDERED: VANCOMYCIN 1,250 MG in SODIUM CHLORIDE 0.9% 250ML 250 ML IV SCH (23:00)
[2021-06-14] MEDS ORDERED: IPRATROPIUM/ALBUTEROL SULFATE 3 ML AMPUL.NEB IH SCH (02:00)
[2021-06-14 05:00] VITALS: BP 147/99
[2021-06-14] MEDS: PIPERACIL/TAZOBACTA 4.5/NS 100 4.5 GM/100 ML VIAL IV SCH ×2 (05:36)
[2021-06-14 07:07] LABS: Basophils % (Auto) 0.2 % (0.0-1.8); Eosinophils % (Auto) 0.6 % (0.0-4.3); Hematocrit 40.2 % (35.5-45.6); Hemoglobin 13.4 gm/dl (11.8-15.2); Lymphocytes % (Auto) 37.2 % (13.4-35.0); Mean Corpuscular HGB Conc 33 % (32-34); Mean Corpuscular Volume 98 fl (84-94); Monocytes # (Auto) 0.8 K/mm3 (0.0-0.8); Monocytes % (Auto) 10.4 % (0.0-7.3); Platelet Count 213 K/mm3 (140-440); Red Blood Count 4.09 M/mm3 (3.65-5.03); Red Cell Distribution Width 14.9 % (13.2-15.2)
[2021-06-14 07:19] LABS: BUN/Creatinine Ratio 18; Blood Urea Nitrogen 16 mg/dL (9-20); Calcium 8.5 mg/dL (8.4-10.2); Hemolysis Index 6
[2021-06-14] MEDS ORDERED: VANCOMYCIN PHARMACY TO DOSE IV SCH (09:00)
[2021-06-14] MEDS ORDERED: VANCOMYCIN 1,750 MG in SODIUM CHLORIDE 0.9% 500 ML 500 ML IV ONE (10:00)
[2021-06-14] MEDS ORDERED: CEFEPIME/NS 1 GM/100 ML 1 GM/100 ML BAG IV SCH (10:00)
--- NOTE | 2021-06-14 10:21 | Discharge Summary ---
Providers - Providers Date of Admission: 06/13/21 21:56 Attending physician: HUONG MCLEOD MD 06/13/21 19:27 Consult to Physician [CONS] Urgent Comment: Consulting Provider: SARA COTTRELL Physician Instructions: Reason For Exam: right toes frostbite injury with gangrene 06/14/21 08:17 Consult to Physician [CONS] Routine Comment: Consulting Provider: RUTH HOBSON Physician Instructions: Reason For Exam: gangrene rt foot 06/14/21 08:18 Consult to Physician [CONS] Routine Comment: Consulting Provider: DANIEL HUMPHRIES Physician Instructions: Reason For Exam: gangrene rt foot Primary care physician: MEDINA WHITEHEAD Hospitalization Condition: Stable Hospital course: Hospital Course: Patient signing out AMA. Disposition: 07 LEFT AGAINST MEDICAL ADVICE Time spent for discharge: 35 Exam - Constitutional Vitals: Temp Pulse Resp BP Pulse Ox 98.5 F 86 20 147/99 97 06/14/21 04:59 06/14/21 04:59 06/14/21 04:59 06/14/21 04:59 06/14/21 07:48 Plan Follow up with: MEDINA WHITEHEAD MD [Primary Care Provider] - 3-5 Days
[2021-06-14] MEDS ORDERED: VANCOMYCIN 1,250 MG in SODIUM CHLORIDE 0.9% 250ML 250 ML IV SCH (22:00)
== END 2021-06-14 10:35 | disposition left against medical advice (07) | DRG 300 ==
LOC: ED 15:46 → 3A 21:56
PROVIDERS: ADMIT Hospitalist; ATTEND Internal Medicine
DX: I96 Gangrene, not elsewhere classified (principal); T33.821A Superficial frostbite of right foot, initial encounter; L03.115 Cellulitis of right lower limb; I10 Essential (primary) hypertension; Z91.19 Patient's noncompliance with other medical treatment and regimen; F17.200 Nicotine dependence, unspecified, uncomplicated; G40.909 Epilepsy, unspecified, not intractable, without status epilepticus; E78.5 Hyperlipidemia, unspecified; X31.XXXA Exposure to excessive natural cold, initial encounter; Y93.89 Activity, other specified; Y92.89 Other specified places as the place of occurrence of the external cause; Y99.8 Other external cause status; Z53.29 Procedure and treatment not carried out because of patient's decision for other reasons
CPT/HCPCS: 36415; 80048; 85025; 85652; G0378; J3490; J7070; J7502; J1170; J1644; J1885; J2405; J2543; J3370; J7050

== ENCOUNTER 2021-07-22 03:17 | Inpatient (IN) | payer SELFPAY ==
[2021-07-22] MEDS ORDERED: VANCOMYCIN/NS 1 GM/250 ML 1 GM/250 ML BAG IV ONE (06:24)
--- NOTE | 2021-07-22 06:29 | Emergency Department Report ---
HPI - General Chief Complaint: Extremity Injury, Lower Time Seen by Provider: 07/22/21 06:11 - HPI HPI: Room 23 The patient is a 30-year-old male returning to the emergency department with a chief complaint of gangrenous toes of the right foot. Patient states for several months he has had pain and discoloration of the toes of the right foot. Patient came to this emergency department 1 month ago and was admitted to the hospital however left AMA to go to [place] prior to evaluation by specialist. Patient states he went to [place] was never placed in a room received some pain medication and eventually left. Patient states he has not sought medical attention since he was at [place]. Patient came to the emergency department today complaining of continued pain to the toes of the right foot. Patient denies history of fever ED Past Medical Hx - Past Medical History Previous Medical History?: Yes Hx Hypertension: Yes Hx Seizures: Yes Additional medical history: elevated cholesterol. Grangrene of right 1,2,3 toes - Surgical History Past Surgical History?: No - Family History Family history: no significant - Social History Smoking Status: Current Every Day Smoker (1/2 pack/day) Substance Use Type: Alcohol (Occasional) - Medications Home Medications: Home Medications Medication Instructions Recorded Confirmed Last Taken Type levETIRAcetam [Keppra TAB] 500 mg PO BID #60 tablet 09/17/20 Unknown Rx ED Review of Systems ROS: Stated complaint: RIGHT 3 TOES BLACK Other details as noted in HPI Constitutional: denies: fever Eyes: denies: eye pain ENT: denies: throat pain Respiratory: no symptoms reported Cardiovascular: denies: chest pain Endocrine: no symptoms reported Gastrointestinal: denies: abdominal pain Genitourinary: denies: dysuria Musculoskeletal: arthralgia Skin: change in color Neurological: denies: headache Physical Exam - Physical Exam Vital Signs: Vital Signs 07/22/21 04:03 Temperature 98 F Pulse Rate 73 Respiratory 18 Rate Blood Pressure 141/98 O2 Sat by Pulse 100 Oximetry Physical Exam: GENERAL: The patient is well-developed well-nourished male lying on stretcher not appearing to be in acute distress. [] HEENT: Normocephalic. Atraumatic. Extraocular motions are intact. Patient has moist mucous membranes. NECK: Supple. Trachea midline CHEST/LUNGS: Clear to auscultation. There is no respiratory distress noted. HEART/CARDIOVASCULAR: Regular. There is no tachycardia. There is no gallop rub or murmur. 2+ right DP ABDOMEN: Abdomen is soft, nontender. Patient has normal bowel sounds. There is no abdominal distention. SKIN: The distal portions of the right great toe, second toe and middle toe are black and necrotic in appearance. Tender to palpation. Increased pigmentation of right foot NEURO: The patient is awake, alert, and oriented. The patient is cooperative. The patient has no focal neurologic deficits. The patient has normal speech. GCS 15 MUSCULOSKELETAL: There is tenderness to palpation of the necrotic toes of the right foot ED Course Vital Signs 07/22/21 04:03 Temperature 98 F Pulse Rate 73 Respiratory 18 Rate Blood Pressure 141/98 O2 Sat by Pulse 100 Oximetry - Consultations Consultation #1: 07/22/21 07:49 Vascular surgery paged 07/22/21 08:50 Dr. Pineda currently in surgery. Consult placed through [facility] ED Medical Decision Making - Lab Data Result diagrams: 07/22/21 06:49 07/22/21 06:49 - Differential Diagnosis Gangrene of the toes Critical care attestation.: If time is entered above; I have spent that time in minutes in the direct care of this critically ill patient, excluding procedure time. ED Disposition Clinical Impression: Gangrene of right foot, Cellulitis of right foot Disposition: ADMITTED INPATIENT Is pt being admited?: Yes Does the pt Need Aspirin: No Condition: Stable Referrals: MEDINA WHITEHEAD MD [Primary Care Provider] - 3-5 Days Time of Disposition: 08:50 (Care transferred to the hospitalist (Case discussed with Dr. Michael))
[2021-07-22 07:39] LABS: Basophils % (Auto) 0.8 % (0.0-1.8); Eosinophils % (Auto) 0.5 % (0.0-4.3); Hematocrit 43.3 % (35.5-45.6); Hemoglobin 14.8 gm/dl (11.8-15.2); Lymphocytes # (Auto) 2.5 K/mm3 (1.2-5.4); Lymphocytes % (Auto) 38.5 % (13.4-35.0); Mean Corpuscular HGB Conc 34 % (32-34); Mean Corpuscular Volume 99 fl (84-94); Monocytes # (Auto) 0.4 K/mm3 (0.0-0.8); Monocytes % (Auto) 6.6 % (0.0-7.3); Platelet Count 200 K/mm3 (140-440); Red Blood Count 4.36 M/mm3 (3.65-5.03); Red Cell Distribution Width 14.2 % (13.2-15.2)
[2021-07-22 07:44] LABS: BUN/Creatinine Ratio 13; Blood Urea Nitrogen 8 mg/dL (9-20); Calcium 8.9 mg/dL (8.4-10.2); Hemolysis Index 25
[2021-07-22 08:09] LABS: Erythrocyte Sedimentation Rate 8 mm/Hr (0-20)
[2021-07-22 08:26] LABS: C-Reactive Protein < 0.30 mg/dL (0.00-1.30)
[2021-07-22 09:39] VITALS: BP 150/99
--- NOTE | 2021-07-22 09:47 | History and Physical Report ---
History of Present Illness Date of examination: 07/22/21 Date of admission: 07/22/21 Chief complaint: Right lower extremity gangrene History of present illness: Mr. Ledesma is a 30-year-old male with past medical history of hypertension, seizure disorder, hyperlipidemia currently homeless and noncompliant with medications presents to the ER with chief complaint of gangrenous toes of the right foot. He was seen in the emergency room about a month ago but left [facility]IN [facility] according to him he was going to [place] per his mother's request but returns today with complaint of worsening pain and discoloration to the right toes not extending to the fourth toe. He reports that he never got any care at [place] is unsure if he actually went to [place]. The pain he rates 5/10 in intensity, he continues to smoke half a pack a day. He denies any fever nausea vomiting or diarrhea. In the ER he does have some demarcation at the base of the right hallux. Past History Past Medical History: hypertension, hyperlipidemia, seizures Past Surgical History: No surgical history Social history: smoking, other (Homeless) Family history: no significant family history Medications and Allergies Allergies Allergy/AdvReac Type Severity Reaction Status Date / Time No Known Allergies Allergy Verified 06/13/21 15:54 Home Medications Medication Instructions Recorded Confirmed Last Taken Type levETIRAcetam [Keppra TAB] 500 mg PO BID #60 tablet 09/17/20 Unknown Rx Review of Systems All systems: negative Constitutional: chronic pain, no fever, no chills, no sweats Cardiovascular: no chest pain, no orthopnea, no palpitations, no rapid/irregular heart beat, no syncope, no lightheadedness, no shortness of breath Respiratory: no cough, no cough with sputum, no wheezing, no pleurisy Musculoskeletal: shooting leg pain, no muscle weakness, no muscle cramps Integumentary: wounds (right toe) Exam - Physical Exam Narrative exam: VITAL SIGNS: Reviewed. GENERAL: The patient appears normally developed, disheveled vital signs as d ocumented. HEAD: No signs of head trauma. EYES: Pupils are equal. Extraocular motions intact. EARS: Hearing grossly intact. MOUTH: Oropharynx is normal. NECK: No adenopathy, no JVD. CHEST: Chest with clear breath sounds bilaterally. No wheezes, rales, or rhonchi. CARDIAC: Regular rate and rhythm. S1 and S2, without murmurs, gallops, or rubs. VASCULAR: Dusky appearing right toes, no edema. Peripheral pulses normal and equal in all extremities. ABDOMEN: Soft, non tender and non distended. No rebound or guarding, and no masses palpated. Bowel Sounds normal. MUSCULOSKELETAL: Right toes with cyanosis, erythema and black gangrene is fracture with mild demarcation in the bottom of the right hallux. With tenderness of the gangrene toes he is still otherwise good range of motion in all other major joints. NEUROLOGIC EXAM: Alert and oriented x 3 No focal sensory or strength deficits. Speech normal. Follows commands. PSYCHIATRIC: Mood normal. SKIN: detail exam as documented in skin assessment - Constitutional Vitals: Temp Pulse Resp BP Pulse Ox 98 F 71 17 150/99 99 07/22/21 04:03 07/22/21 09:00 07/22/21 09:00 07/22/21 09:30 07/22/21 09:30 Results - Labs CBC & Chem 7: 07/22/21 06:49 07/22/21 06:49 Labs: Laboratory Last Values WBC 6.5 K/mm3 (4.5-11.0) 07/22/21 06:49 RBC 4.36 M/mm3 (3.65-5.03) 07/22/21 06:49 Hgb 14.8 gm/dl (11.8-15.2) 07/22/21 06:49 Hct 43.3 % (35.5-45.6) 07/22/21 06:49 MCV 99 fl (84-94) H 07/22/21 06:49 MCH 34 pg (28-32) H 07/22/21 06:49 MCHC 34 % (32-34) 07/22/21 06:49 RDW 14.2 % (13.2-15.2) 07/22/21 06:49 Plt Count 200 K/mm3 (140-440) 07/22/21 06:49 Lymph % (Auto) 38.5 % (13.4-35.0) H 07/22/21 06:49 [place] % (Auto) 6.6 % (0.0-7.3) 07/22/21 06:49 Eos % (Auto) 0.5 % (0.0-4.3) 07/22/21 06:49 Baso % (Auto) 0.8 % (0.0-1.8) 07/22/21 06:49 Lymph # (Auto) 2.5 K/mm3 (1.2-5.4) 07/22/21 06:49 [place] # (Auto) 0.4 K/mm3 (0.0-0.8) 07/22/21 06:49 Eos # (Auto) 0.0 K/mm3 (0.0-0.4) 07/22/21 06:49 Baso # (Auto) 0.0 K/mm3 (0.0-0.1) 07/22/21 06:49 Seg Neutrophils % 53.6 % (40.0-70.0) 07/22/21 06:49 Seg Neutrophils # 3.5 K/mm3 (1.8-7.7) 07/22/21 06:49 ESR 8 mm/Hr (0-20) 07/22/21 06:49 Sodium 137 mmol/L (137-145) 07/22/21 06:49 Potassium 4.2 mmol/L (3.6-5.0) 07/22/21 06:49 Chloride 98.0 mmol/L (98-107) 07/22/21 06:49 Carbon Dioxide 17 mmol/L (22-30) L 07/22/21 06:49 Anion Gap 26 mmol/L 07/22/21 06:49 BUN 8 mg/dL (9-20) L 07/22/21 06:49 Creatinine 0.6 mg/dL (0.8-1.3) L 07/22/21 06:49 Estimated GFR > 60 ml/min 07/22/21 06:49 BUN/Creatinine Ratio 13 % 07/22/21 06:49 Glucose 74 mg/dL (75-100) L 07/22/21 06:49 Calcium 8.9 mg/dL (8.4-10.2) 07/22/21 06:49 C-Reactive Protein < 0.30 mg/dL (0.00-1.30) 07/22/21 06:49 Assessment and Plan Assessment and plan: Mr. Ledesma is a 30-year-old male with past medical history of hypertension, seizure disorder, hyperlipidemia currently homeless and noncompliant with medications presents to the ER with chief complaint of gangrenous toes of the right foot. He was seen in the emergency room about a month ago but left AGAINST [facility]ICAL ADVICE according to him he was going to [place] per his mother's request but returns today with complaint of worsening pain and discoloration to the right toes not extending to the fourth toe. He reports that he never got any care at [place] is unsure if he actually went to [place]. The pain he rates 5/10 in intensity, he continues to smoke half a pack a day. He denies any fever nausea vomiting or diarrhea. In the ER he does have some demarcation at the base of the right hallux. 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 We will obtain vascular consult, will request surgical consult also [facility] antibiotic coverage ID consultation Will defer antiplatelet medication and full anticoagulation to vascular team Extensive counseling provided to the patient on compliance. Also discussed the patient about likelihood of amputation he verbalized understanding Pain control 15 minutes of counseling provided to the patient on tobacco use disorder and how this impacts his care he verbalized understanding DVT and GI prophylax Advance Directives: Yes Plan of care discussed with patient/family: Yes
[2021-07-22] MEDS ORDERED: ACETAMINOPHEN 325 MG TAB PO PRN (10:00)
[2021-07-22] MEDS ORDERED: MORPHINE 2 MG/1 ML INJ IV PRN (10:00)
[2021-07-22] MEDS ORDERED: FAMOTIDINE 20 MG/2 ML INJ IV SCH (10:00)
[2021-07-22] MEDS ORDERED: VANCOMYCIN PHARMACY TO DOSE IV SCH (10:00)
[2021-07-22] MEDS ORDERED: ONDANSETRON 4 MG/2 ML INJ IV PRN (10:30)
[2021-07-22] MEDS ORDERED: NALOXONE 0.4 MG/1 ML INJ IV PRN (10:30)
[2021-07-22] MEDS ORDERED: VANCOMYCIN 1,750 MG in SODIUM CHLORIDE 0.9% 500 ML 500 ML IV ONE (11:00)
[2021-07-22] MEDS ORDERED: VANCOMYCIN 750 MG in SODIUM CHLORIDE 0.9% 250ML 250 ML IV ONE (11:00)
[2021-07-22] MEDS ORDERED: ALBUTEROL 2.5 MG/3 ML NEBU IH PRN (12:00)
--- NOTE | 2021-07-22 12:28 | Event Note ---
Date: 07/22/21 Got a call from the DR HOBSON, appears patient have left AMA. I Called the ER and was notified they have been looking for the patient for the past 20 mins and he is no where to be found.
[2021-07-22] MEDS ORDERED: VANCOMYCIN 1,250 MG in SODIUM CHLORIDE 0.9% 250ML 250 ML IV SCH (22:00)
[2021-07-22] MEDS ORDERED: levETIRAcetam 500 MG TAB PO SCH (22:00)
== END 2021-07-22 12:26 | disposition left against medical advice (07) | DRG 300 ==
LOC: ED 03:17 → 3A 09:44
PROVIDERS: ADMIT Internal Medicine; ATTEND Internal Medicine
DX: I96 Gangrene, not elsewhere classified (principal); L03.115 Cellulitis of right lower limb; E87.2 Acidosis; I10 Essential (primary) hypertension; E78.00 Pure hypercholesterolemia, unspecified; F17.210 Nicotine dependence, cigarettes, uncomplicated; E78.5 Hyperlipidemia, unspecified; G40.909 Epilepsy, unspecified, not intractable, without status epilepticus; Z91.19 Patient's noncompliance with other medical treatment and regimen
CPT/HCPCS: 36415; 80048; 85025; 85652; 86140; 87040; G0378; J3370; J7040; J7050

== ENCOUNTER 2021-07-27 11:33 | Inpatient (IN) | payer SELFPAY ==
[2021-07-27] MEDS ORDERED: KETOROLAC 30 MG/1 ML INJ IV ONE (12:11)
--- NOTE | 2021-07-27 12:12 | Emergency Department Report ---
ED Extremity Problem HPI - General Chief complaint: Extremity Problem,Nontraumatic Stated complaint: RT FOOT PAIN Time Seen by Provider: 07/27/21 11:55 Source: patient Mode of arrival: Ambulatory Limitations: No Limitations - History of Present Illness Initial comments: This is a [id number]-year-old male with a past medical history of frostbite and gangrene to the first 3 toes on the right foot x6 months ago. Patient states that since then he has been having pain in the first 3 toes of the right foot. He denies fever/chills/nausea vomiting/abdominal pain. Patient states pain is worsened with applied pressure and walking. Patient states he does walk without any difficulties. Patient states he has been to several ED's for treatment as he has not been able to find physician. MD Complaint: extremity pain Severity scale (0 -10): 10 - Related Data Previous Rx's Medication Instructions Recorded Last Taken Type levETIRAcetam [Keppra TAB] 500 mg PO BID #60 tablet 09/17/20 Unknown Rx Allergies Allergy/AdvReac Type Severity Reaction Status Date / Time No Known Allergies Allergy Verified 07/27/21 11:56 ED Review of Systems ROS: Stated complaint: RT FOOT PAIN Other details as noted in HPI ED Past Medical Hx - Past Medical History Hx Hypertension: Yes Hx CVA: Yes Hx Seizures: Yes Additional medical history: elevated cholesterol. Grangrene of right 1,2,3 toes - Social History Smoking Status: Never Smoker Substance Use Type: None - Medications Home Medications: Home Medications Medication Instructions Recorded Confirmed Last Taken Type levETIRAcetam [Keppra TAB] 500 mg PO BID #60 tablet 09/17/20 07/27/21 Unknown Rx ED Physical Exam - General Limitations: No Limitations General appearance: alert, in no apparent distress - Head Head exam: Present: atraumatic, normocephalic - Eye Eye exam: Present: normal appearance - ENT ENT exam: Present: mucous membranes moist - Neck Neck exam: Present: normal inspection - Respiratory Respiratory exam: Present: normal lung sounds bilaterally. Absent: respiratory distress - Cardiovascular Cardiovascular Exam: Present: regular rate, normal rhythm. Absent: systolic murmur, diastolic murmur, rubs, gallop - GI/Abdominal GI/Abdominal exam: Present: soft, normal bowel sounds - Rectal Rectal exam: Present: deferred - Extremities Exam Extremities exam: Present: normal inspection, full ROM - Expanded Lower Extremity Exam Right Lower Leg exam: Present: normal inspection, full ROM. Absent: tenderness, swelling, abrasion Ankle exam: Present: normal inspection, full ROM Foot/Toe exam: Present: tenderness, abrasion (Right gangrenous of the first 3 toes.), ecchymosis. Absent: swelling Neuro vascular tendon exam: Present: no vascular compromise Gait: Positive: observed and normal - Back Exam Back exam: Present: normal inspection - Neurological Exam Neurological exam: Present: alert, oriented X3 - Psychiatric Psychiatric exam: Present: normal affect, normal mood - Skin Skin exam: Present: warm, dry, intact, normal color. Absent: rash ED Course Vital Signs 07/27/21 07/27/21 11:39 11:47 Temperature 97.7 F 98.2 F Pulse Rate 114 H 81 Respiratory 16 20 Rate Blood Pressure 162/104 124/79 [Left] O2 Sat by Pulse 98 100 Oximetry - Reevaluation(s) Reevaluation #1: Patient stable in no acute distress. Patient noted that he will stay for admission. Discussed case with vascular surgeon Dr. Condon who will come to evaluate patient. Patient also discussed with Dr. Topete hospitalist on-call who will be admitting the patient Arterial Dopplers ordered, pending 07/27/21 13:15 ED Medical Decision Making - Lab Data Result diagrams: 07/27/21 13:25 07/27/21 13:25 - Medical Decision Making 30 yo male presents with gangrene toes of right foot Pt to be admitted, Vitals stable Awaiting room placement. Hospitalist service has admitted pt. Doppler studies pending. Critical care attestation.: If time is entered above; I have spent that time in minutes in the direct care of this critically ill patient, excluding procedure time. ED Disposition Clinical Impression: Gangrene of toe of right foot Disposition: ADMITTED INPATIENT Is pt being admited?: Yes Does the pt Need Aspirin: No Condition: Stable
[2021-07-27] MEDS ORDERED: SODIUM CHLORIDE 0.9% 1000 ML 1,000 ML IV ONE (12:59)
[2021-07-27 13:39] LABS: Basophils % (Auto) 0.2 % (0.0-1.8); Eosinophils % (Auto) 0.2 % (0.0-4.3); Hematocrit 42.9 % (35.5-45.6); Hemoglobin 14.9 gm/dl (11.8-15.2); Lymphocytes # (Auto) 1.5 K/mm3 (1.2-5.4); Lymphocytes % (Auto) 22.1 % (13.4-35.0); Mean Corpuscular HGB Conc 35 % (32-34); Mean Corpuscular Volume 99 fl (84-94); Monocytes # (Auto) 0.6 K/mm3 (0.0-0.8); Monocytes % (Auto) 8.9 % (0.0-7.3); Platelet Count 122 K/mm3 (140-440); Red Blood Count 4.35 M/mm3 (3.65-5.03); Red Cell Distribution Width 14.5 % (13.2-15.2)
[2021-07-27 14:03] LABS: Alanine Aminotransferase 212 units/L (7-56); Albumin 4.3 g/dL (3.9-5); Blood Urea Nitrogen 8 mg/dL (9-20); Calcium 8.5 mg/dL (8.4-10.2); Hemolysis Index 5
[2021-07-27 14:08] LABS: BUN/Creatinine Ratio 13
[2021-07-27] MEDS ORDERED: HYDROmorphone 1 MG/1 ML INJ IV ONE (16:32)
--- NOTE | 2021-07-27 16:38 | Vascular Lab Report ---
DUPLEX DOPPLER LOWER EXTREMITY ARTERIAL, RIGHT INDICATION / CLINICAL INFORMATION: gangrene of toes. TECHNIQUE: Arterial duplex examination of the right lower extremity performed using B-mode, color flow and spect ral Doppler assessment. FINDINGS: RIGHT: Common Femoral Artery: PSV 118 cm/sec. Triphasic waveform. Proximal SFA: PSV 103 cm/sec. Triphasic waveform. Mid SFA: PSV 66 cm/sec. Triphasic waveform. Distal SFA: PSV 95 cm/sec. Triphasic waveform. Popliteal artery: PSV 84 cm/sec. Triphasic waveform. Posterior tibial artery: PSV 65 cm/sec. Triphasic waveform. Dorsalis Pedis Artery: PSV 67 cm/sec. Triphasic waveform. IMPRESSION: 1. No significant right lower extremity peripheral artery disease. Doppler Waveform: - Triphasic is normal. - Biphasic is abnormal if clear transition from triphasic signal along vascular tree. - Monophasic is abnormal. Signer Name: Fernando Sharpe MD Signed: 07/27/2021 4:34 PM Workstation Name: [id number]
[2021-07-27] MEDS ORDERED: METOCLOPRAMIDE 10 MG/2 ML INJ IV PRN (17:14)
[2021-07-27] MEDS ORDERED: ACETAMINOPHEN 325 MG TAB PO PRN (17:14)
[2021-07-27] MEDS ORDERED: HYDROmorphone 1 MG/1 ML INJ IV PRN (17:14)
[2021-07-27] MEDS ORDERED: ONDANSETRON 4 MG/2 ML INJ IV PRN (17:14)
[2021-07-27] MEDS ORDERED: MORPHINE 2 MG/1 ML INJ IV PRN (17:14)
[2021-07-27] MEDS ORDERED: oxyCODONE /ACETAMINOPHEN 5-325MG TAB PO PRN (17:14)
--- NOTE | 2021-07-27 17:28 | History and Physical Report ---
History of Present Illness Date of examination: 07/27/21 Date of admission: 07/27/2021 Chief complaint: Pain right foot and blackened right first 3 toes for the last 4 months. History of present illness: 30-year-old -[place] man with history of seizure disorder, questionable hypertension comes in for pain in the right foot and black toes of the right foot for the last 3 to 4 months. Patient is a heavy smoker. First 3 toes of right foot are involved. The gangrene involves the distal phalanxes of all the 3 toes. No fever or chills. Pain is about 8 on a scale of 1-10. Patient was apparently admitted couple of times recently but signed out AMA. Patient states pain is worsened with walking. Patient has been to several emergency departments. No recent seizures. - Past Medical History --Hypertension: Yes --CVA: Yes --Seizures: Yes --Additional medical history: elevated cholesterol. Grangrene of right 1,2,3 toes -Surgical history -None - Social History --Smokes 1 pack/day --Substance Use Type: None - Medications Home Medications: Home Medications Medication Instructions Recorded Confirmed Last Taken Type levETIRAcetam [Keppra TAB] 500 mg PO BID #60 tablet 09/17/20 07/27/21 Unknown Rx Review of Systems ROS: Constitutional no weight loss or weight gain no fever or chills HEENT no sore throat no post nasal drip no diplopia Neck no neck stiffness no lymph gland enlargement Chest and lungs no shortness of breath cough or wheezing CVS no chest pain no diaphoresis no palpitations GI no nausea no vomiting no diarrhea Genitourinary system no dysuria no flank pain Musculoskeletal system no muscle pains no joint pains GENERAL ASSIGNMENT REPORTER no syncope no seizures Skin no rash no itching Psychiatric no depression no homicidal or suicidal tendencies Hematologic no lymphedema or bruising Endocrine no polydipsia no polyuria no cold intolerance no heat intolerance Medications and Allergies Allergies Allergy/AdvReac Type Severity Reaction Status Date / Time No Known Allergies Allergy Verified 07/27/21 11:56 Home Medications Medication Instructions Recorded Confirmed Last Taken Type levETIRAcetam [Keppra TAB] 500 mg PO BID #60 tablet 09/17/20 07/27/21 Unknown Rx Exam - Constitutional Vitals: Temp Pulse Resp BP Pulse Ox 99.5 F 87 20 132/84 98 04/23/22 16:29 07/27/21 16:29 07/27/21 16:29 07/27/21 16:29 07/27/21 16:29 General appearance: Present: no acute distress, well-nourished - EENT Eyes: Present: PERRL ENT: hearing intact, clear oral mucosa - Neck Neck: Present: supple, normal ROM - Respiratory Respiratory effort: normal Respiratory: bilateral: CTA - Cardiovascular Heart rate: 78 Rhythm: regular Heart Sounds: Present: S1 & S2. Absent: rub, click - Extremities Extremities: pulses symmetrical, No edema, abnormal (Gangrene of the right first 3 toes involving the distal phalanxes) Peripheral Pulses: within normal limits - Abdominal General gastrointestinal: Present: soft, non-tender, non-distended, normal bowel sounds Male genitourinary: Present: normal - Integumentary Integumentary: Present: clear, warm, dry - Musculoskeletal Musculoskeletal: gait normal, strength equal bilaterally - Psychiatric Psychiatric: appropriate mood/affect, intact judgment & insight - Neurologic Neurologic: CNII-XII intact, moves all extremities Results - Labs CBC & Chem 7: 07/28/21 05:31 07/28/21 05:31 Labs: Laboratory Last Values WBC 7.0 K/mm3 (4.5-11.0) 07/27/21 13:25 RBC 4.35 M/mm3 (3.65-5.03) 07/27/21 13:25 Hgb 14.9 gm/dl (11.8-15.2) 07/27/21 13:25 Hct 42.9 % (35.5-45.6) 07/27/21 13:25 MCV 99 fl (84-94) H 07/27/21 13:25 MCH 34 pg (28-32) H 07/27/21 13:25 MCHC 35 % (32-34) H 07/27/21 13:25 RDW 14.5 % (13.2-15.2) 07/27/21 13:25 Plt Count 122 K/mm3 (140-440) L 07/27/21 13:25 Lymph % (Auto) 22.1 % (13.4-35.0) 07/27/21 13:25 [place] % (Auto) 8.9 % (0.0-7.3) H 07/27/21 13:25 Eos % (Auto) 0.2 % (0.0-4.3) 07/27/21 13:25 Baso % (Auto) 0.2 % (0.0-1.8) 07/27/21 13:25 Lymph # (Auto) 1.5 K/mm3 (1.2-5.4) 07/27/21 13:25 [place] # (Auto) 0.6 K/mm3 (0.0-0.8) 07/27/21 13:25 Eos # (Auto) 0.0 K/mm3 (0.0-0.4) 07/27/21 13:25 Baso # (Auto) 0.0 K/mm3 (0.0-0.1) 07/27/21 13:25 Seg Neutrophils % 68.6 % (40.0-70.0) 07/27/21 13:25 Seg Neutrophils # 4.8 K/mm3 (1.8-7.7) 07/27/21 13:25 Sodium 135 mmol/L (137-145) L 07/27/21 13:25 Potassium 3.4 mmol/L (3.6-5.0) L 07/27/21 13:25 Chloride 91.6 mmol/L (98-107) L 07/27/21 13:25 Carbon Dioxide 18 mmol/L (22-30) L 07/27/21 13:25 Anion Gap 29 mmol/L 07/27/21 13:25 BUN 8 mg/dL (9-20) L 07/27/21 13:25 Creatinine 0.6 mg/dL (0.8-1.3) L 07/27/21 13:25 Estimated GFR > 60 ml/min 07/27/21 13:25 BUN/Creatinine Ratio 13 % 07/27/21 13:25 Glucose 120 mg/dL (75-100) H 07/27/21 13:25 Calcium 8.5 mg/dL (8.4-10.2) 07/27/21 13:25 Total Bilirubin 0.50 mg/dL (0.1-1.2) 07/27/21 13:25 AST 303 units/L (5-40) H 07/27/21 13:25 ALT 212 units/L (7-56) H 07/27/21 13:25 Alkaline Phosphatase 76 units/L (35-129) 07/27/21 13:25 Total Protein 6.5 g/dL (6.3-8.2) 07/27/21 13:25 Albumin 4.3 g/dL (3.9-5) 07/27/21 13:25 Albumin/Globulin Ratio 2.0 % 07/27/21 13:25 Short CBC 07/27/21 Range/Units 13:25 WBC 7.0 (4.5-11.0) K/mm3 Hgb 14.9 (11.8-15.2) gm/dl Hct 42.9 (35.5-45.6) % Plt Count 122 L (140-440) K/mm3 [facility] 07/27/21 13:25 Sodium 135 L Potassium 3.4 L Chloride 91.6 L Carbon Dioxide 18 L BUN 8 L Creatinine 0.6 L Glucose 120 H Calcium 8.5 Liver Function 07/27/21 Range/Units 13:25 Total Bilirubin 0.50 (0.1-1.2) mg/dL AST 303 H (5-40) units/L ALT 212 H (7-56) units/L Alkaline Phosphatase 76 (35-129) units/L Albumin 4.3 (3.9-5) g/dL Short CBC 07/27/21 07/28/21 Range/Units 13:25 05:31 WBC 7.0 5.8 (4.5-11.0) K/mm3 Hgb 14.9 14.5 (11.8-15.2) gm/dl Hct 42.9 42.2 (35.5-45.6) % Plt Count 122 L 110 L (140-440) K/mm3 [facility] 07/27/21 07/28/21 13:25 05:31 Sodium 135 L 132 L Potassium 3.4 L 4.2 D Chloride 91.6 L 89.4 L Carbon Dioxide 18 L 22 BUN 8 L 5 L Creatinine 0.6 L 0.6 L Glucose 120 H 72 L Calcium 8.5 8.6 Liver Function 07/27/21 07/28/21 Range/Units 13:25 05:31 Total Bilirubin 0.50 1.00 (0.1-1.2) mg/dL AST 303 H 314 H (5-40) units/L ALT 212 H 211 H (7-56) units/L Alkaline Phosphatase 76 85 (35-129) units/L Albumin 4.3 4.3 (3.9-5) g/dL - Imaging and Cardiology Imaging and Cardiology: Right lower extremity arterial duplex scan No significant right lower extremity peripheral artery disease Assessment and Plan Advance Directives: Yes (Full code) VTE prophylaxis?: Chemical Plan of care discussed with patient/family: Yes - Patient Problems (1) Gangrene of right foot Current Visit: No Status: Acute Plan to address problem: There is no peripheral artery disease Etiology unclear Surgery consult requested MRI of the foot was requested (2) Intractable pain Current Visit: No Status: Acute Plan to address problem: Pain management (3) Seizure disorder Current Visit: No Status: Chronic Plan to address problem: Continue Keppra at 750 mg twice and then (4) Hypertension Current Visit: No Status: Chronic Qualifiers: Hypertension type: primary hypertension Qualified Code(s): I10 - Essential (primary) hypertension Plan to address problem: Patient not on antihypertensives We will monitor the blood pressure and add blood pressure medications if necessary (5) Nicotine dependence Current Visit: No Status: Chronic Qualifiers: Nicotine product type: cigarettes Plan to address problem: Patient counseled about nicotine dependence and its involvement in the gangrene of the toes (6) DVT prophylaxis Current Visit: No Status: Acute Plan to address problem: On anticoagulation GI prophylaxis (7) Advance care planning Current Visit: Yes Status: Acute Plan to address problem: Disease education conducted, care plan discussed, diagnosis discussed, prognosis discussed. Patient is full code. Patient acknowledges sign and agreement with care plan. +30 minutes.
[2021-07-27] MEDS ORDERED: VANCOMYCIN 1,500 MG in SODIUM CHLORIDE 0.9% 500 ML 500 ML IV ONE ×2 (18:00→20:00)
[2021-07-27] MEDS ORDERED: VANCOMYCIN PHARMACY TO DOSE IV SCH (18:00)
[2021-07-27] MEDS: levETIRAcetam 500 MG TAB PO SCH (21:41)
[2021-07-27] MEDS: HEPARIN 5,000 UNIT/1 ML VIAL SUB-Q SCH (21:41)
[2021-07-28] MEDS: AMPICILLIN/SULBACTA 3GM/100ML 3 GM/100 ML BAG IV SCH ×5 (00:32→11:49)
[2021-07-28] MEDS ORDERED: hydrALAZINE 20 MG/1 ML INJ IV PRN ×2 (05:23→11:12)
[2021-07-28 06:01] LABS: Basophils % (Auto) 0.4 % (0.0-1.8); Eosinophils % (Auto) 0.7 % (0.0-4.3); Hematocrit 42.2 % (35.5-45.6); Hemoglobin 14.5 gm/dl (11.8-15.2); Lymphocytes # (Auto) 1.3 K/mm3 (1.2-5.4); Lymphocytes % (Auto) 21.9 % (13.4-35.0); Mean Corpuscular HGB Conc 35 % (32-34); Mean Corpuscular Volume 98 fl (84-94); Monocytes # (Auto) 0.6 K/mm3 (0.0-0.8); Monocytes % (Auto) 10.7 % (0.0-7.3); Platelet Count 110 K/mm3 (140-440); Red Blood Count 4.32 M/mm3 (3.65-5.03); Red Cell Distribution Width 14.1 % (13.2-15.2)
[2021-07-28 06:18] LABS: Alanine Aminotransferase 211 units/L (7-56); Albumin 4.3 g/dL (3.9-5); Blood Urea Nitrogen 5 mg/dL (9-20); Calcium 8.6 mg/dL (8.4-10.2); Hemolysis Index 6
[2021-07-28 06:19] LABS: BUN/Creatinine Ratio 8
[2021-07-28] MEDS ORDERED: VANCOMYCIN 1,250 MG in SODIUM CHLORIDE 0.9% 250ML 250 ML IV SCH (08:00)
[2021-07-28] MEDS: levETIRAcetam 500 MG TAB PO SCH (09:02)
[2021-07-28] MEDS: HEPARIN 5,000 UNIT/1 ML VIAL SUB-Q SCH (09:03)
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
--- NOTE | 2021-07-28 11:15 | Progress Note ---
Assessment and Plan Assessment and plan: VTE prophylaxis?: Chemical Plan of care discussed with patient/family: Yes - Patient Problems -- Gangrene of right foot Current Visit: No Status: Acute Plan to address problem: There is no peripheral artery disease Etiology unclear Surgery consult requested MRI of the foot was requested -- Intractable pain Current Visit: No Status: Acute Plan to address problem: Pain management -- Seizure disorder Current Visit: No Status: Chronic Plan to address problem: Continue Keppra at 750 mg twice and then -- Hypertension Current Visit: No Status: Chronic Qualifiers: Hypertension type: primary hypertension Qualified Code(s): I10 - Essential (primary) hypertension Plan to address problem: Patient not on antihypertensives We will monitor the blood pressure and add blood pressure medications if necessary -- Nicotine dependence Current Visit: No Status: Chronic Qualifiers: Nicotine product type: cigarettes Plan to address problem: Patient counseled about nicotine dependence and its involvement in the gangrene of the toes -- DVT prophylaxis Current Visit: No Status: Acute Plan to address problem: On anticoagulation GI prophylaxis -- Advance care planning Current Visit: Yes Status: Acute Plan to address problem: Disease education conducted, care plan discussed, diagnosis discussed, prognosis discussed. Patient is full code. Patient acknowledges sign and agreement with care plan. +30 minutes. Hospitalist Physical - Constitutional Vitals: Temp Pulse Resp BP Pulse Ox 98.1 F 66 16 182/116 100 07/28/21 04:33 07/28/21 05:50 07/28/21 04:33 07/28/21 05:50 07/28/21 07:16 General appearance: Present: no acute distress Results - Labs CBC & Chem 7: 07/28/21 05:31 07/28/21 05:31 Labs: Laboratory Last Values WBC 5.8 K/mm3 (4.5-11.0) 07/28/21 05:31 RBC 4.32 M/mm3 (3.65-5.03) 07/28/21 05:31 Hgb 14.5 gm/dl (11.8-15.2) 07/28/21 05:31 Hct 42.2 % (35.5-45.6) 07/28/21 05:31 MCV 98 fl (84-94) H 07/28/21 05:31 MCH 34 pg (28-32) H 07/28/21 05:31 MCHC 35 % (32-34) H 07/28/21 05:31 RDW 14.1 % (13.2-15.2) 07/28/21 05:31 Plt Count 110 K/mm3 (140-440) L 07/28/21 05:31 Lymph % (Auto) 21.9 % (13.4-35.0) 07/28/21 05:31 [place] % (Auto) 10.7 % (0.0-7.3) H 07/28/21 05:31 Eos % (Auto) 0.7 % (0.0-4.3) 07/28/21 05:31 Baso % (Auto) 0.4 % (0.0-1.8) 07/28/21 05:31 Lymph # (Auto) 1.3 K/mm3 (1.2-5.4) 07/28/21 05:31 [place] # (Auto) 0.6 K/mm3 (0.0-0.8) 07/28/21 05:31 Eos # (Auto) 0.0 K/mm3 (0.0-0.4) 07/28/21 05:31 Baso # (Auto) 0.0 K/mm3 (0.0-0.1) 07/28/21 05:31 Seg Neutrophils % 66.3 % (40.0-70.0) 07/28/21 05:31 Seg Neutrophils # 3.8 K/mm3 (1.8-7.7) 07/28/21 05:31 Sodium 132 mmol/L (137-145) L 07/28/21 05:31 Potassium 4.2 mmol/L (3.6-5.0) D 07/28/21 05:31 Chloride 89.4 mmol/L (98-107) L 07/28/21 05:31 Carbon Dioxide 22 mmol/L (22-30) 07/28/21 05:31 Anion Gap 25 mmol/L 07/28/21 05:31 BUN 5 mg/dL (9-20) L 07/28/21 05:31 Creatinine 0.6 mg/dL (0.8-1.3) L 07/28/21 05:31 Estimated GFR > 60 ml/min 07/28/21 05:31 BUN/Creatinine Ratio 8 % 07/28/21 05:31 Glucose 72 mg/dL (75-100) L 07/28/21 05:31 Calcium 8.6 mg/dL (8.4-10.2) 07/28/21 05:31 Total Bilirubin 1.00 mg/dL (0.1-1.2) 07/28/21 05:31 AST 314 units/L (5-40) H 07/28/21 05:31 ALT 211 units/L (7-56) H 07/28/21 05:31 Alkaline Phosphatase 85 units/L (35-129) 07/28/21 05:31 Total Protein 6.8 g/dL (6.3-8.2) 07/28/21 05:31 Albumin 4.3 g/dL (3.9-5) 07/28/21 05:31 Albumin/Globulin Ratio 1.7 % 07/28/21 05:31 Hernández/IV: Voiding Method Urinal Active Medications - Current Medications Current Medications: Generic Name Dose Route Start Last Admin Trade Name Freq PRN Reason Stop Dose Admin Acetaminophen 650 mg 07/27/21 17:14 Acetaminophen 325 Mg Tab PO Q4H PRN Pain MILD(1-3)/Fever >100.5/YATES Heparin Sodium (Porcine) 5,000 unit 07/27/21 22:00 07/28/21 09:03 Heparin 5,000 Unit/1 Ml Vial SUB-Q 5,000 unit Q12HR SUNG Administration Hydralazine HCl 10 mg 07/28/21 05:23 07/28/21 05:50 Hydralazine 20 Mg/1 Ml Inj IV 10 mg Q6HR PRN Administration Hypertension Hydromorphone HCl 0.5 mg 07/27/21 17:14 07/27/21 19:26 Hydromorphone 1 Mg/1 Ml Inj IV 0.5 mg Q3H PRN Administration Pain , Severe (7-10) Ampicillin Sodium/Sulbactam Sodium 3 gm in 100 mls @ 200 mls/hr 07/27/21 18:00 07/28/21 05:51 Unasyn/Ns 3 Gm/100 Ml IV 200 mls/hr Q6H SUNG Administration Protocol Vancomycin HCl 1,250 mg/ 275 mls @ 166.667 mls/hr 07/28/21 08:00 07/28/21 08:00 Sodium Chloride IV 166.667 mls/hr Q12H SUNG Administration Levetiracetam 500 mg 07/27/21 22:00 07/28/21 09:02 Levetiracetam 500 Mg Tab PO 500 mg BID SUNG Administration Metoclopramide HCl 10 mg 07/27/21 17:14 Metoclopramide 10 Mg/2 Ml Inj IV Q6H PRN Nausea And Vomiting Morphine Sulfate 2 mg 07/27/21 17:14 Morphine 2 Mg/1 Ml Inj IV Q4H PRN Pain, Moderate (4-6) Ondansetron HCl 4 mg 07/27/21 17:14 Ondansetron 4 Mg/2 Ml Inj IV Q3H PRN Nausea And Vomiting Oxycodone/Acetaminophen 1 tab 07/27/21 17:14 Oxycodone /Acetaminophen 5-325mg Tab PO Q6H PRN Pain, Moderate (4-6) Sodium Chloride 10 ml 07/27/21 22:00 07/28/21 09:02 Sodium Chloride 0.9% 10 Ml Flush Syringe IV 10 ml BID SUNG Administration Sodium Chloride 10 ml 07/27/21 17:14 Sodium Chloride 0.9% 10 Ml Flush Syringe IV PRN PRN LINE FLUSH
[2021-07-28 12:12] VITALS: BP 177/115
[2021-07-28] MEDS ORDERED: hydrALAZINE 25 MG TAB PO SCH (14:00)
--- NOTE | 2021-07-28 19:23 | Discharge Summary ---
Providers - Providers Date of Admission: 07/27/21 17:14 Date of discharge: 07/28/21 Attending physician: JAYASHREE GROVE 07/27/21 17:48 Consult to Physician [CONS] Routine Comment: Consulting Provider: SARA COTTRELL Physician Instructions: Reason For Exam: Gangrene 07/28/21 11:08 Consult to Wound/ET Nurse [CONS] Routine Reason For Exam: wound eval Primary care physician: SODA [employer]PERATOR Hospitalization Condition: Stable Hospital course: -- Gangrene of right foot Current Visit: No Status: Acute Plan to address problem: There is no peripheral artery disease Etiology unclear Surgery consult requested MRI of the foot was requested -- Intractable pain Current Visit: No Status: Acute Plan to address problem: Pain management -- Seizure disorder Current Visit: No Status: Chronic Plan to address problem: Continue Keppra at 750 mg twice and then -- Hypertension Current Visit: No Status: Chronic Qualifiers: Hypertension type: primary hypertension Qualified Code(s): I10 - Essential (primary) hypertension Plan to address problem: Patient not on antihypertensives We will monitor the blood pressure and add blood pressure medications if necessary -- Nicotine dependence Current Visit: No Status: Chronic Qualifiers: Nicotine product type: cigarettes Plan to address problem: Patient counseled about nicotine dependence and its involvement in the gangrene of the toes Disposition: 07 LEFT AGAINST MEDICAL ADVICE Exam - Constitutional Vitals: Temp Pulse Resp BP Pulse Ox 98.1 F 75 16 177/115 98 07/28/21 04:33 07/28/21 11:31 07/28/21 04:33 07/28/21 11:31 07/28/21 11:31 Plan Follow up with: HARLEY MICHELE MD [Primary Care Provider] - 7 Days
== END 2021-07-28 12:30 | disposition left against medical advice (07) | DRG 300 ==
LOC: ED 11:33 → 3A 17:14
PROVIDERS: ADMIT Internal Medicine; ATTEND Internal Medicine
DX: I96 Gangrene, not elsewhere classified (principal); G40.802 Other epilepsy, not intractable, without status epilepticus; I10 Essential (primary) hypertension; Z86.73 Personal history of transient ischemic attack (TIA), and cerebral infarction without residual deficits; F17.210 Nicotine dependence, cigarettes, uncomplicated
CPT/HCPCS: 36415; 80053; 85025; 99406; G0378; J7502; J0295; J0360; J1170; J1644; J1885; J3370; J7040; J7050

== ENCOUNTER 2021-08-23 17:37 | Inpatient (IN) | payer SELFPAY ==
[2021-08-23] MEDS ORDERED: THIAMINE 100 MG, FOLIC ACID 1 MG, MULTIPLE VITAMIN INJ, ADULT 10 ML in SODIUM CHLORIDE ... IV ONE (18:43)
[2021-08-23] MEDS ORDERED: SODIUM CHLORIDE 0.9% 1000 ML 1,000 ML IV ONE (18:43)
--- NOTE | 2021-08-23 18:46 | Emergency Department Report ---
ED General Adult HPI - General Chief complaint: Seizure Stated complaint: HYPERTENSION/ETOH Time Seen by Provider: 08/23/21 18:18 Source: EMS Mode of arrival: Stretcher Limitations: No Limitations - History of Present Illness Initial comments: This is a 30-year-old male with chronic alcoholism and diabetes brought in by EMS with alcohol intoxication and generalized weakness. Patient denies any fall or trauma. Patient also reports some chronic also on his right toes that is been going on for a while. He also mentioned that he has had several shots of alcohol today. No other modifying or associated factors reported. - Related Data Previous Rx's Medication Instructions Recorded Last Taken Type levETIRAcetam [Keppra TAB] 500 mg PO BID #60 tablet 09/17/20 Unknown Rx Allergies Allergy/AdvReac Type Severity Reaction Status Date / Time No Known Allergies Allergy Verified 07/27/21 11:56 ED Review of Systems ROS: Stated complaint: HYPERTENSION/ETOH Other details as noted in HPI Comment: All other systems reviewed and negative Constitutional: other (alcohol intoxication ) Skin: other (right 1st 2nd and 3rd toes ulcer ) ED Past Medical Hx - Past Medical History Previous Medical History?: Yes Hx Hypertension: Yes Hx CVA: Yes Hx Congestive Heart Failure: No Hx Diabetes: No Hx Seizures: Yes Hx Asthma: No Hx COPD: No Additional medical history: elevated cholesterol. Grangrene of right 1,2,3 toes - Social History Smoking Status: Current Every Day Smoker - Medications Home Medications: Home Medications Medication Instructions Recorded Confirmed Last Taken Type levETIRAcetam [Keppra TAB] 500 mg PO BID #60 tablet 09/17/20 07/27/21 Unknown Rx ED Physical Exam - General Limitations: No Limitations General appearance: alert, in no apparent distress, appears intoxicated - Head Head exam: Present: normal inspection - Eye Eye exam: Present: normal appearance Pupils: Present: normal accommodation - ENT ENT exam: Present: normal exam, normal orophraynx, mucous membranes moist - Neck Neck exam: Present: normal inspection. Absent: tenderness - Respiratory Respiratory exam: Present: normal lung sounds bilaterally. Absent: respiratory distress, accessory muscle use - Cardiovascular Cardiovascular Exam: Present: regular rate, normal rhythm, normal heart sounds - GI/Abdominal GI/Abdominal exam: Present: soft, normal bowel sounds. Absent: tenderness - Extremities Exam Extremities exam: Present: normal inspection, normal capillary refill, other (ri ght 1st 2nd and 3rd toes ulcer ) - Back Exam Back exam: Absent: tenderness - Neurological Exam Neurological exam: Present: alert, oriented X3 - Psychiatric Psychiatric exam: Present: normal mood - Skin Skin exam: Present: warm, normal color ED Course Vital Signs 08/23/21 08/23/21 17:40 20:22 Temperature 99.1 F Pulse Rate 102 H Respiratory 18 Rate Blood Pressure 124/84 [Left] O2 Sat by Pulse 96 98 Oximetry - Reevaluation(s) Reevaluation #1: 08/23/21 18:52 here with alcohol intoxication -- and chronic right toes ulcer -- will go ahead order xr right toes to rule out ostemyelitis--and start ivf ns and banana bag to hydration --will also check CBC and CMP for any Reevaluation #2: 08/23/21 21:24 Labs reviewed to be with elevated AST/ALT 195/132 but with normal t bili--this is likely alcohol related with EtOH level 0.49--will continue to hydrate-- Reevaluation #3: 08/23/21 23:49 Pt reevaluated and sleeping while taken his ivf ns and banana bag-- pt signed out to Dr Bland while waiting for patient to sober from the EtOH intoxication-- Reevaluation #4: 08/23/21 23:55 right Foot xray noted with FINDINGS: There is cortical erosion along the medial aspect of the phalangeal tuft of the third digit. This is a new finding compared with prior exam of 06/13/2021 no fracture or dislocation. No additional sites of cortical erosion. Soft tissue swelling is seen in several of the digits. IMPRESSION: Cortical erosion has developed involving the distal phalanx- phalangeal tuft region of the third digit. This is worrisome for the presence of osteomyelitis. With above findings and been intoxicated with gangrene on foot and os teomyelitis--we will go ahead and get this patient started on vancomycin IV and consider admission Reevaluation #5: 08/23/21 23:56 Dr. Blank consulted who accept pt for further evaluation and treatment ED Medical Decision Making - Lab Data Result diagrams: 08/23/21 19:02 08/23/21 19:02 Critical care attestation.: If time is entered above; I have spent that time in minutes in the direct care of this critically ill patient, excluding procedure time. ED Disposition Clinical Impression: Transaminitis Alcohol intoxication Qualifiers: Complication of substance-induced condition: with unspecified complication Qualified Code(s): F10.929 - Alcohol use, unspecified with intoxication, unspecified Foot ulcer, right Qualifiers: Non-pressure ulcer stage: unspecified non-pressure ulcer stage Qualified Code(s): L97.519 - Non-pressure chronic ulcer of other part of right foot with unspecified severity Frostbite of right foot Qualifiers: Encounter type: subsequent encounter Qualified Code(s): T33.821D - Superficial frostbite of right foot, subsequent encounter; X31.XXXD - Exposure to excessive natural cold, subsequent encounter Osteomyelitis Qualifiers: Osteomyelitis type: unspecified type Osteomyelitis location: foot Laterality: right Qualified Code(s): M86.9 - Osteomyelitis, unspecified Disposition: 09 ADMITTED INPATIENT Is pt being admited?: Yes Does the pt Need Aspirin: No Condition: Stable Time of Disposition: 23:58 (Dr Blank consulted who accept pt)
[2021-08-23 19:30] LABS: Basophils # (Auto) 0.1 K/mm3 (0.0-0.1); Basophils % (Auto) 0.8 % (0.0-1.8); Eosinophils % (Auto) 0.1 % (0.0-4.3); Hematocrit 39.2 % (35.5-45.6); Lymphocytes # (Auto) 1.7 K/mm3 (1.2-5.4); Lymphocytes % (Auto) 24.4 % (13.4-35.0); Mean Corpuscular HGB Conc 33 % (32-34); Mean Corpuscular Volume 101 fl (84-94); Monocytes # (Auto) 0.6 K/mm3 (0.0-0.8); Monocytes % (Auto) 8.2 % (0.0-7.3); Platelet Count 134 K/mm3 (140-440); Red Blood Count 3.87 M/mm3 (3.65-5.03); Red Cell Distribution Width 15.5 % (13.2-15.2)
--- NOTE | 2021-08-23 19:35 | XRay Report ---
RIGHT TOE, 4 VIEWS INDICATION / CLINICAL INFORMATION: toe chronic ulcer. COMPARISON: Prior radiographs, 06/13/2021. FINDINGS: There is cortical erosion along the medial aspect of the phalangeal tuft of the third digit. This is a new finding compared with prior exam of 06/13/2021 no fracture or dislocation. No additional sites o f cortical erosion. Soft tissue swelling is seen in several of the digits. IMPRESSION: Cortical erosion has developed involving the distal phalanx-phalangeal tuft region of the third digit. This is worrisome for the presence of osteomyelitis. Signer Name: Kirstin Rodriguez MD Signed: 08/23/2021 7:31 PM Workstation Name: [id number]
[2021-08-23 19:52] LABS: Alanine Aminotransferase 132 units/L (7-56); Albumin 3.9 g/dL (3.9-5); BUN/Creatinine Ratio 13; Blood Urea Nitrogen 10 mg/dL (9-20); Calcium 8.4 mg/dL (8.4-10.2); Hemolysis Index 87
[2021-08-23] MEDS ORDERED: ACETAMINOPHEN 325 MG TAB PO PRN (23:58)
[2021-08-23] MEDS ORDERED: MORPHINE 2 MG/1 ML INJ IV PRN (23:58)
[2021-08-23] MEDS ORDERED: ONDANSETRON 4 MG/2 ML INJ IV PRN (23:58)
[2021-08-24] MEDS ORDERED: VANCOMYCIN/NS 1 GM/250 ML 1 GM/250 ML BAG IV ONE (00:01)
[2021-08-24] MEDS ORDERED: MORPHINE 4 MG/1 ML INJ IV PRN (08:35)
[2021-08-24] MEDS ORDERED: oxyCODONE /ACETAMINOPHEN 5-325MG TAB PO PRN (08:35)
[2021-08-24 09:17] VITALS: BP 173/121
[2021-08-24] MEDS ORDERED: NIFEdipine XL 30 MG TAB PO SCH ×2 (10:00→11:00)
[2021-08-24] MEDS ORDERED: LOSARTAN 25 MG TAB PO SCH (10:00)
[2021-08-24] MEDS ORDERED: ENOXAPARIN 40 MG/0.4 ML INJ SUB-Q SCH (10:00)
[2021-08-24] MEDS ORDERED: NIFEdipine XL 60 MG TAB PO SCH (11:00)
--- NOTE | 2021-08-24 12:06 | History and Physical Report ---
History of Present Illness Date of examination: 08/24/21 Date of admission: 08/23/21 23:58 Chief complaint: Possible seizure History of present illness: Patient is a 30-year-old male with past medical history of alcohol dependence, uncontrolled hypertension, diabetes mellitus type 2, and obesity who presented for possible seizure while being acutely intoxicated in addition to having generalized weakness. Patient was brought in via EMS. Patient denied any traumas or falls. The patient endorsed celebrating with his friends with approximately 340 ounce beers and half a pint of vodka. In the ED, the patient was found to be hemodynamically stable with an elevated blood pressure. Further evaluation revealed necrosis of his right toes (digits 1 through 3) concerning for osteomyelitis. Patient endorsed following with an infectious disease physician after visiting [facility]. He endorses being on an antibiotic for the previous 3 months; however, he cannot remember the name of the antibiotic. Patient was admitted for concern for worsening osteomyelitis. Past History Past Medical History: diabetes, hepatitis, seizures, other (Obesity, alcohol dependence.) Past Surgical History: No surgical history Social history: lives with family, smoking, alcohol abuse, full code Family history: hypertension (Mother has hypertension.) Medications and Allergies Allergies Allergy/AdvReac Type Severity Reaction Status Date / Time No Known Allergies Allergy Verified 07/27/21 11:56 Home Medications Medication Instructions Recorded Confirmed Last Taken Type levETIRAcetam [Keppra TAB] 500 mg PO BID #60 tablet 09/17/20 07/27/21 Unknown Rx Active Meds: Active Medications Acetaminophen (Acetaminophen 325 Mg Tab) 650 mg PO Q4H PRN PRN Reason: Pain MILD(1-3)/Fever >100.5/YATES Last Admin: 08/24/21 04:02 Dose: 650 mg Enoxaparin Sodium (Enoxaparin 40 Mg/0.4 Ml Inj) 40 mg SUB-Q DAILY SUNG; Protocol Last Admin: 08/24/21 09:18 Dose: 40 mg Losartan Potassium (Losartan 25 Mg Tab) 25 mg PO QDAY SUNG Last Admin: 08/24/21 09:18 Dose: 25 mg Morphine Sulfate (Morphine 2 Mg/1 Ml Inj) 2 mg IV Q4H PRN PRN Reason: Pain, Moderate (4-6) Morphine Sulfate (Morphine 4 Mg/1 Ml Inj) 2 mg IV Q4H PRN PRN Reason: Pain , Severe (7-10) Nifedipine (Nifedipine Xl 60 Mg Tab) 60 mg PO QDAY [facility] Last Admin: 08/24/21 11:47 Dose: Not Given Ondansetron HCl (Ondansetron 4 Mg/2 Ml Inj) 4 mg IV Q8H PRN PRN Reason: Nausea And Vomiting Oxycodone/Acetaminophen (Oxycodone /Acetaminophen 5-325mg Tab) 1 tab PO Q6H PRN PRN Reason: Pain, Moderate (4-6) Sodium Chloride (Sodium Chloride 0.9% 10 Ml Flush Syringe) 10 ml IV BID [facility] Last Admin: 08/24/21 09:22 Dose: 10 ml Sodium Chloride (Sodium Chloride 0.9% 10 Ml Flush Syringe) 10 ml IV PRN PRN PRN Reason: LINE FLUSH Review of Systems All systems: negative Neurological: tremors Exam - Constitutional Vitals: Temp Pulse Resp BP Pulse Ox 98.8 F 94 H 20 173/121 99 08/24/21 07:57 08/24/21 07:57 08/24/21 07:57 08/24/21 07:57 08/24/21 11:09 General appearance: Present: no acute distress, obese, other (Actively tremulous) - EENT Eyes: Present: PERRL, EOM intact ENT: hearing intact, clear oral mucosa, dentition normal - Neck Neck: Present: supple, normal ROM - Respiratory Respiratory effort: normal Respiratory: bilateral: CTA - Cardiovascular Rhythm: regular Heart Sounds: Present: S1 & S2 - Extremities Extremities: no ischemia, pulses intact, pulses symmetrical, normal temperature, normal color Extremity abnormal: black (Chronic osteomyelitis with necrosis of right foot (d igits 1 through 3)) Peripheral Pulses: within normal limits - Abdominal General gastrointestinal: Present: soft, non-tender, non-distended, normal bowel sounds Male genitourinary: Present: deferred - Rectal Rectal Exam: deferred - Integumentary Integumentary: Present: clear, warm, dry - Musculoskeletal Musculoskeletal: strength equal bilaterally - Psychiatric Psychiatric: appropriate mood/affect, memory intact, cooperative - Neurologic Neurologic: CNII-XII intact, moves all extremities - Allied Health Allied health notes reviewed: nursing Results - Labs CBC & Chem 7: 08/23/21 19:02 08/23/21 19:02 Labs: Laboratory Last Values WBC 7.1 K/mm3 (4.5-11.0) 08/23/21 19: RBC 3.87 M/mm3 (3.65-5.03) 08/23/21 19:02 Hgb 13.0 gm/dl (11.8-15.2) 08/23/21 19:02 Hct 39.2 % (35.5-45.6) 08/23/21 19:02 MCV 101 fl (84-94) H 08/23/21 19:02 MCH 34 pg (28-32) H 08/23/21 19:02 MCHC 33 % (32-34) 08/23/21 19:02 RDW 15.5 % (13.2-15.2) H 08/23/21 19:02 Plt Count 134 K/mm3 (140-440) L 08/23/21 19:02 Lymph % (Auto) 24.4 % (13.4-35.0) 08/23/21 19:02 Josephine % (Auto) 8.2 % (0.0-7.3) H 08/23/21 19:02 Eos % (Auto) 0.1 % (0.0-4.3) 08/23/21 19:02 Baso % (Auto) 0.8 % (0.0-1.8) 08/23/21 19:02 Lymph # (Auto) 1.7 K/mm3 (1.2-5.4) 08/23/21 19:02 Josephine # (Auto) 0.6 K/mm3 (0.0-0.8) 08/23/21 19:02 Eos # (Auto) 0.0 K/mm3 (0.0-0.4) 08/23/21 19:02 Baso # (Auto) 0.1 K/mm3 (0.0-0.1) 08/23/21 19: Seg Neutrophils % 66.5 % (40.0-70.0) 08/23/21 19: Seg Neutrophils # 4.7 K/mm3 (1.8-7.7) 08/23/21 19:02 Sodium 142 mmol/L (137-145) 08/23/21 19:02 Potassium 4.2 mmol/L (3.6-5.0) 08/23/21 19:02 Chloride 103.4 mmol/L (98-107) 08/23/21 19:02 Carbon Dioxide 21 mmol/L (22-30) L 08/23/21 19:02 Anion Gap 22 mmol/L 08/23/21 19:02 BUN 10 mg/dL (9-20) 08/23/21 19:02 Creatinine 0.8 mg/dL (0.8-1.3) 08/23/21 19:02 Estimated GFR > 60 ml/min 08/23/21 19:02 BUN/Creatinine Ratio 13 % 08/23/21 19:02 Glucose 93 mg/dL (75-100) 08/23/21 19:02 Calcium 8.4 mg/dL (8.4-10.2) 08/23/21 19:02 Total Bilirubin 0.20 mg/dL (0.1-1.2) 08/23/21 19:02 AST 195 units/L (5-40) H 08/23/21 19:02 ALT 132 units/L (7-56) H 08/23/21 19:02 Alkaline Phosphatase 117 units/L (35-129) 08/23/21 19:02 Total Protein 6.8 g/dL (6.3-8.2) 08/23/21 19:02 Albumin 3.9 g/dL (3.9-5) 08/23/21 19:02 Albumin/Globulin Ratio 1.3 % 08/23/21 19:02 Plasma/Serum Alcohol 0.49 % (0-0.07) H 08/23/21 19:02 Hernández/IV: Voiding Method Urinal Assessment and Plan Assessment and plan: Patient is a 30-year-old male with past medical history of alcohol dependence, u ncontrolled hypertension, diabetes mellitus type 2, and obesity who presented for possible seizure while being acutely intoxicated in addition to having generalized weakness. Patient was brought in via EMS. Patient denied any traumas or falls. The patient endorsed celebrating with his friends with approximately 340 ounce beers and half a pint of vodka. In the ED, the patient was found to be hemodynamically stable with an elevated blood pressure. Further evaluation revealed necrosis of his right toes (digits 1 through 3) concerning for osteomyelitis. Patient endorsed following with an infectious disease physician after visiting [facility]. He endorses being on an antibiotic for the previous 3 months; however, he cannot remember the name of the antibiotic. Patient was admitted for concern for worsening osteomyelitis. #Acute alcohol intoxication #Alcohol dependence Blood alcohol 0.49 on admission Initiating CIWA protocol. Counseled patient at length about the importance of alcohol cessation. Patient still endorses needing to leave AMA. - Counseled patient on the importance of ETOH cessation. Assess patient's current ETOH consumption. Assisted with trying to arrange resources for patient to adequately work towards ETOH cessation. Patient expresses understanding. -Time: +15 mins #Elevated transaminases AST 195, ALT 132 Likely secondary to patient's alcohol dependence and recent intoxication. Sh ould improve without additional intervention. #Uncontrolled hypertension - home medications: None - current medications: Nifedipine 60 mg daily and losartan 25 mg daily - SBP goal <160 and DBP goal <90 while inpatient - continue to monitor #Chronic osteomyelitis of right foot Foot x-ray revealing "cortical erosion of distal phalanx with phalangeal tuft region of third digit" Status post vancomycin administration x1 in the ED. Discontinuing antibiotics. Given chronic nature and the fact that the patient is hemodynamically stable, afebrile, and lacking leukocytosis, the patient can continue his outpatient antibiotic management. Patient endorses following with an infectious disease physician from [facility] and being on an unknown antibiotic for at least 3 months. #Thrombocytopenia Platelets 134 Likely secondary to alcohol dependence. #Tobacco dependence #Tobacco/Smoking cessation counseling - Counseled patient about the importance of smoking cessation and the possible sequelae as a result of continued tobacco consumption. The patient expresses understanding. -Time: +15 mins #Obesity #Weight loss counseling #Exercise counseling - BMI 34.5 - Counseled patient on the importance of weight loss, incorporating exercise, and dietary changes (lean meats, fresh fruits and vegetables, and water intake). Patient expresses understanding. - Time: +15 min #Advanced care planning -Disease education conducted, care plan discussed, diagnoses discussed, prognosis discussed, and patient acknowledges understanding with care plan -Time: +30 min Advance Directives: No VTE prophylaxis?: Chemical Plan of care discussed with patient/family: Yes
--- NOTE | 2021-08-24 12:14 | Discharge Summary ---
Providers - Providers Date of Admission: 08/23/21 23:58 Date of discharge: 08/24/21 Attending physician: OLEGARIO IZQUIERDO MD Primary care physician: MEDINA WHITEHEAD Hospitalization Reason for admission: Alcohol intoxication Condition: Stable Pertinent studies: Reviewed. Procedures: None. Hospital course: Patient is a 30-year-old male with past medical history of alcohol dependence, uncontrolled hypertension, diabetes mellitus type 2, and obesity who presented for possible seizure while being acutely intoxicated in addition to having generalized weakness. Patient was brought in via EMS. Patient denied any traumas or falls. The patient endorsed celebrating with his friends with approximately 340 ounce beers and half a pint of vodka. In the ED, the patient was found to be hemodynamically stable with an elevated blood pressure. Further evaluation revealed necrosis of his right toes (digits 1 through 3) concerning for osteomyelitis. Patient endorsed following with an infectious disease physician after visiting [facility]. He endorses being on an antibiotic for the previous 3 months; however, he cannot remember the name of the antibiotic. Patient was admitted for concern for worsening osteomyelitis. It was explained to the patient that he would likely soon start to withdraw from alcohol, and it was highly recommended that he be monitored. The patient endorsed that he had to go to work, and that he had others depending on him. Patient was counseled at length about the importance of alcohol cessation given his age, elevated liver enzymes, active tremors, and prior history of hospitalizations for acute alcohol intoxication. The patient expressed understanding. The patient left AMA. Disposition: LEFT AGAINST MEDICAL ADVICE Final Discharge Diagnosis (Prints w/discharge instructions): Acute alcohol intoxication, alcohol dependence, elevated transaminases, uncontrolled hypertension, chronic osteomyelitis of right foot, thrombocytopenia, tobacco dependence, obesity Time spent for discharge: 45 min Core Measure Documentation - Palliative Care Palliative Care/ Comfort Measures: Not Applicable - Core Measures Any of the following diagnoses?: none Exam - Constitutional Vitals: Temp Pulse Resp BP Pulse Ox 98.8 F 94 H 20 173/121 99 08/24/21 07:57 08/24/21 07:57 08/24/21 07:57 08/24/21 07:57 08/24/21 11:09 General appearance: Present: no acute distress, well-nourished, obese, disheveled, other (Actively tremulous) - EENT Eyes: Present: PERRL, EOM intact ENT: hearing intact, clear oral mucosa, dentition normal - Neck Neck: Present: supple, normal ROM - Respiratory Respiratory effort: normal Respiratory: bilateral: CTA - Cardiovascular Rhythm: regular Heart Sounds: Present: S1 & S2 - Extremities Extremities: no ischemia, pulses intact, pulses symmetrical, No edema, normal temperature, normal color, Full ROM Extremity abnormal: black (Necrosis of right foot (digits 1 through 3) secondary to chronic osteomyelitis) Peripheral Pulses: within normal limits - Abdominal General gastrointestinal: Present: soft, non-tender, non-distended, normal bowel sounds Male genitourinary: Present: deferred - Rectal Rectal Exam: deferred - Integumentary Integumentary: Present: clear, warm, dry - Musculoskeletal Musculoskeletal: strength equal bilaterally - Psychiatric Psychiatric: appropriate mood/affect, memory intact, cooperative, other (Extremely limited insight in regards to his alcohol consumption) - Neurologic Neurologic: CNII-XII intact, moves all extremities - Allied Health Allied health notes reviewed: nursing Plan Activity: advance as tolerated, fall precautions Diet: low salt, diabetic Additional Instructions: Patient is a 30-year-old male with past medical history of alcohol dependence, uncontrolled hypertension, diabetes mellitus type 2, and obesity who presented for possible seizure while being acutely intoxicated in addition to having generalized weakness. Patient was brought in via EMS. Patient denied any traumas or falls. The patient endorsed celebrating with his friends with approximately 340 ounce beers and half a pint of vodka. In the ED, the patient was found to be hemodynamically stable with an elevated blood pressure. Further evaluation revealed necrosis of his right toes (digits 1 through 3) concerning for osteomyelitis. Patient endorsed following with an infectious disease physician after visiting [facility]. He endorses being on an antibiotic for the previous 3 months; however, he cannot remember the name of the antibiotic. Patient was admitted for concern for worsening osteomyelitis. It was explained to the patient that he would likely soon start to withdraw from alcohol, and it was highly recommended that he be monitored. The patient endorsed that he had to go to work, and that he had others depending on him. Patient was counseled at length about the importance of alcohol cessation given his age, elevated liver enzymes, active tremors, and prior history of hospitalizations for acute alcohol intoxication. The patient expressed understanding. The patient left AMA. Care Plan Goals: Patient left AMA. Assessment: Patient is a 30-year-old male with past medical history of alcohol dependence, uncontrolled hypertension, diabetes mellitus type 2, and obesity who presented for possible seizure while being acutely intoxicated in addition to having generalized weakness. Patient was brought in via EMS. Patient denied any traumas or falls. The patient endorsed celebrating with his friends with approximately 340 ounce beers and half a pint of vodka. In the ED, the patient was found to be hemodynamically stable with an elevated blood pressure. Further evaluation revealed necrosis of his right toes (digits 1 through 3) concerning for osteomyelitis. Patient endorsed following with an infectious disease physician after visiting [facility]. He endorses being on an antibiotic for the previous 3 months; however, he cannot remember the name of the antibiotic. Patient was admitted for concern for worsening osteomyelitis. It was explained to the patient that he would likely soon start to withdraw from alcohol, and it was highly recommended that he be monitored. The patient endorsed that he had to go to work, and that he had others depending on him. Patient was counseled at length about the importance of alcohol cessation given his age, elevated liver enzymes, active tremors, and prior history of hospitalizations for acute alcohol intoxication. The patient expressed understanding. The patient left AMA. Follow up with: MEDINA WHITEHEAD MD [Primary Care Provider] - 7 Days Forms: AMA Form
== END 2021-08-24 11:27 | disposition left against medical advice (07) | DRG 894 ==
LOC: ED 17:37 → 4A 23:58
PROVIDERS: ADMIT Hospitalist; ATTEND Student in an Organized Health Care Education/Training Program
DX: F10.229 Alcohol dependence with intoxication, unspecified (principal); T33.821A Superficial frostbite of right foot, initial encounter; I96 Gangrene, not elsewhere classified; M86.671 Other chronic osteomyelitis, right ankle and foot; R74.01 Elevation of levels of liver transaminase levels; Z86.73 Personal history of transient ischemic attack (TIA), and cerebral infarction without residual deficits; F17.200 Nicotine dependence, unspecified, uncomplicated; Y90.9 Presence of alcohol in blood, level not specified; L97.519 Non-pressure chronic ulcer of other part of right foot with unspecified severity; Z82.49 Family history of ischemic heart disease and other diseases of the circulatory system; E11.621 Type 2 diabetes mellitus with foot ulcer; E11.69 Type 2 diabetes mellitus with other specified complication; D69.6 Thrombocytopenia, unspecified; Z71.6 Tobacco abuse counseling; E66.9 Obesity, unspecified; Z71.3 Dietary counseling and surveillance; Z53.29 Procedure and treatment not carried out because of patient's decision for other reasons
CPT/HCPCS: 36415; 80053; 80320; 85025; G0378; J3490; G0480; J1650; J3370; J3411; J7030

== ENCOUNTER 2021-11-08 20:40 | Emergency (ER) | payer SELFPAY ==
[2021-11-09 00:13] VITALS: BP 152/107
--- NOTE | 2021-11-09 00:37 | Emergency Department Report ---
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 Patient has been seen here multiple times for [facility] as well as other hospitals. He has repeatedly signed out AGAINST MEDICAL ADVICE and not been compliant with outpatient follow-up and treatment. Patient once again returns to the hospital complaining of pain to his right foot at the area of gangrenous toes. Patient is sleeping and does not appear to be in acute distress. Patient had an arterial duplex scan and vascular consultation here in July and did not have any signs of peripheral arterial disease - Related Data Previous Rx's Medication Instructions Recorded Last Taken Type levETIRAcetam [Keppra TAB] 500 mg PO BID #60 tablet 09/17/20 Unknown Rx Ibuprofen [Motrin] 800 mg PO Q8HR PRN #20 tablet 11/09/21 Unknown Rx cephALEXin [Keflex] 500 mg PO Q6HR #28 capsule 11/09/21 Unknown Rx Allergies Allergy/AdvReac Type Severity Reaction Status Date / Time No Known Allergies Allergy Verified 07/27/21 11:56 ED Review of Systems ROS: Stated complaint: GANGRENE TOE ON RT FOOT Other details as noted in HPI Comment: All other systems reviewed and negative ED Past Medical Hx - Past Medical History Previous Medical History?: Yes Hx Hypertension: Yes Hx CVA: Yes Hx Congestive Heart Failure: No Hx Diabetes: No Hx Seizures: Yes Hx Asthma: No Hx COPD: No Hx HIV: No Additional medical history: elevated cholesterol. Grangrene of right 1,2,3 toes - Surgical History Past Surgical History?: No - Social History Smoking Status: Never Smoker Substance Use Type: Alcohol - Medications Home Medications: Home Medications Medication Instructions Recorded Confirmed Last Taken Type levETIRAcetam [Keppra TAB] 500 mg PO BID #60 tablet 09/17/20 07/27/21 Unknown Rx Ibuprofen [Motrin] 800 mg PO Q8HR PRN #20 tablet 11/09/21 Unknown Rx cephALEXin [Keflex] 500 mg PO Q6HR #28 capsule 11/09/21 Unknown Rx ED Physical Exam - General Limitations: No Limitations - Other Other exam information: General: No acute distress Head: Atraumatic Eyes: normal appearance ENT: Moist mucous membranes Neck: Normal appearance, no midline tenderness Chest: Clear to auscultation bilaterally CV: Regular rate and rhythm Abdomen: Soft, normal bowel sounds, nontender, nondistended, no rebound or guarding Back: Normal inspection Extremity: Right foot dry gangrene to 1st and 2nd toe. Mild redness and warmth to dorsal foot with mild tenderness, no crepitus. 2+ DP pulse + movement of toes with pain. Neuro: Alert O x 3, no facial asymmetry, speech clear, no gross motor sensory deficit Psych: Appropriate behavior Skin: No rash ED Course Vital Signs 11/09/21 00:05 Temperature 97.6 F Pulse Rate 86 Respiratory 20 Rate Blood Pressure 152/107 O2 Sat by Pulse 98 Oximetry ED Medical Decision Making - Medical Decision Making 31-year-old male presents with chronic gangrene to toes and noncompliance. He presents afebrile. No drainage. No crepitus on exam. Patient has been admitted several times for same and has signed out AGAINST MEDICAL ADVICE and has not followed up as instructed. He does not have a fever. There is no signs of active drainage. There is mild warmth noted. Patient has palpable DP pulses. Patient will be placed on antibiotics, pain medication, and once again encouraged to follow-up as an outpatient Critical Care Time: No Critical care attestation.: If time is entered above; I have spent that time in minutes in the direct care of this critically ill patient, excluding procedure time. ED Disposition Clinical Impression: Gangrene of right foot, Non-compliance Disposition: 01 HOME / SELF CARE / HOMELESS Is pt being admited?: No Does the pt Need Aspirin: No Condition: Stable Instructions: Gangrene Additional Instructions: Take the medication as prescribed. Follow-up with your doctor or doctor/clinic provided. Return if symptoms worsen as indicated by your discharge instructions. Prescriptions: cephALEXin [Keflex] 500 mg PO Q6HR #28 capsule Ibuprofen [Motrin] 800 mg PO Q8HR PRN #20 tablet PRN Reason: Pain , Severe (7-10) Referrals: SARA COTTRELL MD [Staff Physician] - 3-5 Days ()
== END 2021-11-09 01:03 | disposition home or self-care (01) ==
LOC: ED 20:40
DX: I70.261 Atherosclerosis of native arteries of extremities with gangrene, right leg (principal); I10 Essential (primary) hypertension; F10.20 Alcohol dependence, uncomplicated
CPT/HCPCS: 99282; 99283